=== PATIENT | male | born 1960 | race Caucasian/White ===

== ENCOUNTER 2017-05-29 06:33 | Day surgery (SDC) | payer OTHER ==
[2017-05-29] MEDS ORDERED: fentaNYL 100 MCG/2 ML SDV ONE (07:00)
[2017-05-29] MEDS ORDERED: Propofol 200 MG/20 ML SDV ONE ×2 (07:00→08:07)
[2017-05-29] MEDS ORDERED: Midazolam 1 MG/ML 2 ML SDV ONE (07:00)
[2017-05-29] MEDS ORDERED: Lactated Ringers 1,000 ML IV SCH (07:45)
[2017-05-29 10:04] VITALS: BP 134/84
--- NOTE | 2017-05-29 12:55 | OR ---
DATE OF PROCEDURE: 05/29/2017 PREOPERATIVE DIAGNOSIS: Colon cancer screening. POSTOPERATIVE DIAGNOSES: Diverticulosis, multiple colon polyps. PROCEDURES PERFORMED: Colonoscopy to the cecum with snare cautery polypectomy of a transverse colon polyp. Biopsy resection of two right colon polyps adjacent to each other, sent to the laboratory as one specimen. Snare cautery polypectomy and biopsy of polyp at 80 cm from anal verge. Biopsy resection of small rectal polyp. SURGEON: Jonathon Gunter MD. ANESTHESIA: IV anesthesia with monitored anesthesia care. INDICATIONS: This 56-year-old white male is referred for a colonoscopy for colon cancer screening. He has never had a colonoscopic exam. I counseled him for the procedure including risks and alternatives, and he gave his informed consent to proceed. DESCRIPTION OF PROCEDURE: The patient was placed in the left lateral decubitus position. IV anesthesia was administered by the Anesthesia Service. Time-out was held. A rectal exam was performed, which was unremarkable. The flexible video Olympus colonoscope was introduced through his anus, up his rectum, and out his colon all the way to the cecum. En route, we saw a few scattered left-sided diverticula. There was no bleeding or inflammation associated with them. Also en route in the transverse colon, we saw a polyp which was removed with the snare cautery polypectomy technique. This involved placing the snare about its base, elevating it up away from the bowel wall and applying electrocautery as the polyp was amputated. The polyp was aspirated up through the scope and captured in a polyp trap. Once the cecum was reached, the scope was slowly withdrawn, examining the mucosa throughout. In the right colon, we saw two small polyps across from each other. These were removed and sent to the laboratory as one specimen. They were removed using the biopsy forceps. The scope was withdrawn further with no other lesions noted until we reached 80 cm from the anal verge. Here another polyp was seen which was removed using the snare. Initially we biopsied it but it was too large to remove using this technique. The scope was withdrawn further. One last polyp was seen in the rectum which was removed with the biopsy forceps. The scope was retroflexed in the rectum with the distal rectum appearing unremarkable. The scope was straightened and removed. He tolerated the procedure well. Jonathon Gunter MD /[id number] MADISYN
== END 2017-05-29 09:40 | disposition home or self-care (01) ==
LOC: JP.SDS 06:33
PROVIDERS: ATTEND Surgery
DX: Z12.11 Encounter for screening for malignant neoplasm of colon (principal); D12.3 Benign neoplasm of transverse colon; D12.2 Benign neoplasm of ascending colon; D12.6 Benign neoplasm of colon, unspecified; D12.8 Benign neoplasm of rectum; K57.30 Diverticulosis of large intestine without perforation or abscess without bleeding; I10 Essential (primary) hypertension; Z87.891 Personal history of nicotine dependence
CPT/HCPCS: 45380; 45385; J2250; J2704; J3010; J7120; 88305

== ENCOUNTER 2017-12-29 10:52 | Inpatient (IN) | payer OTHER ==
--- NOTE | 2017-12-29 11:37 | EDM.PDOC ---
ED HPI GENERAL MEDICAL PROBLEM - General Chief Complaint: Respiratory Problem Stated Complaint: HEART ATTACK? Time Seen by Provider: 12/29/17 11:31 Source of Information: Reports: Patient, Family, Old Records, RN Notes Reviewed History Limitations: Reports: No Limitations - History of Present Illness INITIAL COMMENTS - FREE TEXT/NARRATIVE: 57-year-old gentleman presents to the emergency department today complaint of lung pain and difficulty breathing. He was initially evaluated in the clinic I did receive a call from his provider concerns about chest pressure and discomfort. However at this time he denies any chest pain chest pressure or discomfort his biggest issue is difficulty breathing he's noticed he's gotten more short of breath over the last week complains of lung pain generally when he takes a deep breath. Denies any nausea vomiting diaphoresis no problems with bowel movements total time about 3 weeks EKG performed in the clinic with comparison to old EKG shows a bradycardia no ST elevations or depressions similar in nature to prior, chest x-ray was also performed will try and obtain report, report show no active process - Related Data Allergies Allergy/AdvReac Type Severity Reaction Status Date / Time No Known Allergies Allergy Verified 12/29/17 11:11 Home Meds: Home Meds Atenolol 100 mg PO DAILY 05/27/17 [History] Ibuprofen [Motrin] 800 mg PO Q8H PRN 05/27/17 [History] Losartan [Cozaar] 100 mg PO DAILY 05/27/17 [History] Sildenafil Citrate [Sildenafil] 100 mg PO ASDIRECTED 05/27/17 [History] Triamcinolone Acetonide [Kenalog 0.1% Crm] 1 applic TOP ASDIRECTED PRN 05/27/17 [History] Chlorthalidone 25 mg PO DAILY 12/29/17 [History] Past Medical History HEENT History: Reports: Impaired Vision Cardiovascular History: Reports: High Cholesterol, Hypertension Genitourinary History: Reports: Other (See Below) Other Genitourinary History: ED Musculoskeletal History: Reports: Fracture, Gout, Osteoarthritis Neurological History: Reports: Concussion Endocrine/Metabolic History: Reports: Obesity/BMI 30+ Hematologic History: Reports: Blood Transfusion(s) Dermatologic History: Reports: Other (See Below) Other Dermatologic History: rash on back - Infectious Disease History Infectious Disease History: Reports: Chicken Pox, Measles - Past Surgical History HEENT Surgical History: Reports: Oral Surgery, Tonsillectomy Cardiovascular Surgical History: Reports: None Neurological Surgical History: Reports: None Musculoskeletal Surgical History: Reports: Other (See Below) Other Musculoskeletal Surgeries/Procedures:: Right elbow reconstruction Social & Family History - Tobacco Use Smoking Status *Q: Former Smoker Years of Tobacco use: 14 Packs/Tins Daily: 1 Used Tobacco, but Quit: Yes Month/Year Tobacco Last Used: 6 years ago Second Hand Smoke Exposure: No - Caffeine Use Caffeine Use: Reports: Soda - Alcohol Use Days Per Week of Alcohol Use: 7 Number of Drinks Per Day: 6 Total Drinks Per Week: 42 Date of Last Drink: 12/28/17 - Recreational Drug Use Recreational Drug Use: Yes Drug Use in Last 12 Months: Yes Recreational Drug Type: Reports: Marijuana/Hashish Recreational Drug Use Frequency: Not Used In Over 2 Months ED ROS GENERAL - Review of Systems Review Of Systems: See Below Constitutional: Reports: Fatigue. Denies: Fever, Chills HEENT: Reports: No Symptoms Respiratory: Reports: Shortness of Breath, Cough. Denies: Sputum (Dry) Cardiovascular: Reports: Dyspnea on Exertion GI/Abdominal: Reports: No Symptoms : Reports: No Symptoms Musculoskeletal: Reports: No Symptoms Skin: Reports: No Symptoms Neurological: Reports: No Symptoms ED EXAM, GENERAL - Physical Exam Exam: See Below Free Text/Narrative:: General: Male, not in any distress, alert and oriented x3 HEENT: head is atraumatic normocephalic, eyes pupils equal round reactive to light, sclera clear no conjunctivitis appreciated. Ears tympanic membranes clear and robles landmarks and light reflex are present bilaterally canals are clear. Nose no septal deviation, nares are clear, no blood present. Mouth mucosa is moist and pink no erythema or exudate noted in soft palate, tongue is midline uvula is midline, dentition is intact. Neck: Supple no thyromegaly no tracheal deviation. Nodes: Cervical nodes subclavicular nodes nontender no palpable lymphadenopathy noted. Lungs: Coarse rhonchi left greater than right otherwise good aeration CV: Regular rate and rhythm S1 and S2 appreciated no murmurs rubs or gallops noted. Abdomen: Soft, nontender, no palpable masses or organomegaly appreciated, no distention no guarding bowel sounds are present, . Neuro: Cranial nerves II through XII grossly intact Skin: Warm and dry, intact Extremities: No lower extremity edema appreciated, Course - Vital Signs Last Recorded V/S: Last Vital Signs Temp 96.6 F 12/29/17 11:10 Pulse 65 12/29/17 11:10 Resp 18 12/29/17 11:10 BP 137/75 12/29/17 11:10 Pulse Ox 94 L 12/29/17 11:10 - Orders/Labs/Meds Orders: Active Orders 24 hr Category Date Time Status Cardiac Monitoring [RC] .As Directed Care 12/29/17 11:32 Active Peripheral IV Care [RC] . DIRECTED Care 12/29/17 12:47 Ordered Sodium Chloride 0.9% [Normal Saline] 1,000 ml Med 12/29/17 13:00 Ordered IV ASDIRECTED Sodium Chloride 0.9% [Saline Flush] Med 12/29/17 12:47 Ordered 10 ml FLUSH ASDIRECTED PRN Peripheral IV Insertion Adult [OM.PC] Urgent Oth 12/29/17 12:47 Ordered Medication Orders Sodium Chloride (Normal Saline) 1,000 mls @ 999 mls/hr IV ASDIRECTED FRANC Sodium Chloride (Saline Flush) 10 ml FLUSH ASDIRECTED PRN PRN Reason: Keep Vein Open Labs: Laboratory Tests 12/29/17 12/29/17 12/29/17 Range/Units 11:35 11:39 11:39 WBC 7.5 (4.5-11.0) K/uL RBC 3.68 L (4.30-5.90) M/uL Hgb 11.5 L (12.0-15.0) g/dL Hct 30.8 L (40.0-54.0) % MCV 84 (80-98) fL MCH 31 (27-31) pg MCHC 37 H (32-36) % Plt Count 242 (150-400) K/uL Neut % (Auto) 69 H (36-66) % Lymph % (Auto) 9 L (24-44) % [place] % (Auto) 20 H (2-6) % Eos % (Auto) 2 (2-4) % Baso % (Auto) 0 (0-1) % D-Dimer, Quantitative < 100 (0.0-400.0) ng/mL Sodium (140-148) mmol/L Potassium (3.6-5.2) mmol/L Chloride (100-108) mmol/L Carbon Dioxide (21-32) mmol/L Anion Gap (5.0-14.0) mmol/L BUN (7-18) mg/dL Creatinine (0.8-1.3) mg/dL Est Cr Clr Drug Dosing mL/min Estimated GFR (MDRD) (>60) Glucose (74-106) mg/dL Calcium (8.5-10.1) mg/dL Total Bilirubin (0.2-1.0) mg/dL AST (15-37) U/L ALT (12-78) U/L Alkaline Phosphatase (46-116) U/L Troponin I (0.000-0.056) ng/mL NT-Pro-B Natriuret Pep (5-125) pg/mL Total Protein (6.4-8.2) g/dL Albumin (3.4-5.0) g/dL Globulin (2.3-3.5) g/dL Albumin/Globulin Ratio (1.2-2.2) TSH, Ultra Sensitive 0.915 (0.358-3.740) uIU/mL 12/29/17 Range/Units 11:39 WBC (4.5-11.0) K/uL RBC (4.30-5.90) M/uL Hgb (12.0-15.0) g/dL Hct (40.0-54.0) % MCV (80-98) fL MCH (27-31) pg MCHC (32-36) % Plt Count (150-400) K/uL Neut % (Auto) (36-66) % Lymph % (Auto) (24-44) % [place] % (Auto) (2-6) % Eos % (Auto) (2-4) % Baso % (Auto) (0-1) % D-Dimer, Quantitative (0.0-400.0) ng/mL Sodium 115 L* (140-148) mmol/L Potassium 2.7 L* (3.6-5.2) mmol/L Chloride 74 L (100-108) mmol/L Carbon Dioxide 32 (21-32) mmol/L Anion Gap 11.7 (5.0-14.0) mmol/L BUN 16 (7-18) mg/dL Creatinine 1.0 (0.8-1.3) mg/dL Est Cr Clr Drug Dosing 77.90 mL/min Estimated GFR (MDRD) > 60 (>60) Glucose 126 H (74-106) mg/dL Calcium 9.4 (8.5-10.1) mg/dL Total Bilirubin 0.8 (0.2-1.0) mg/dL AST 86 H (15-37) U/L ALT 113 H (12-78) U/L Alkaline Phosphatase 70 (46-116) U/L Troponin I < 0.017 (0.000-0.056) ng/mL NT-Pro-B Natriuret Pep 143 H (5-125) pg/mL Total Protein 6.8 (6.4-8.2) g/dL Albumin 3.8 (3.4-5.0) g/dL Globulin 3.0 (2.3-3.5) g/dL Albumin/Globulin Ratio 1.3 (1.2-2.2) TSH, Ultra Sensitive (0.358-3.740) uIU/mL Meds: Medications Generic Name Dose Route Start Last Admin Trade Name Freq PRN Reason Stop Dose Admin Sodium Chloride 1,000 mls @ 999 mls/hr 12/29/17 13:00 Normal Saline IV ASDIRECTED FRANC Sodium Chloride 10 ml 12/29/17 12:47 Saline Flush FLUSH ASDIRECTED PRN Keep Vein Open Departure - Departure Time of Disposition: 12:51 Disposition: Admitted As Inpatient 65 Condition: Good Clinical Impression: Hyponatremia - Discharge Information Referrals: Franko Frank MD [Primary Care Provider] - Forms: ED Department Discharge - My Orders Last 24 Hours: My Active Orders 12/29/17 11:32 Cardiac Monitoring [RC] .As Directed 12/29/17 12:47 Peripheral IV Care [RC] . DIRECTED Sodium Chloride 0.9% [Saline Flush] 10 ml FLUSH ASDIRECTED PRN Peripheral IV Insertion Adult [OM.PC] Urgent 12/29/17 13:00 Sodium Chloride 0.9% [Normal Saline] 1,000 ml IV ASDIRECTED - Assessment/Plan Last 24 Hours: My Active Orders 12/29/17 11:32 Cardiac Monitoring [RC] .As Directed 12/29/17 12:47 Peripheral IV Care [RC] . DIRECTED Sodium Chloride 0.9% [Saline Flush] 10 ml FLUSH ASDIRECTED PRN Peripheral IV Insertion Adult [OM.PC] Urgent 12/29/17 13:00 Sodium Chloride 0.9% [Normal Saline] 1,000 ml IV ASDIRECTED Plan: Assessment Acuity = acute Site and laterality = hyponatremia complicated patient with known history of hypertension Etiology = probable chlorthalidone Manifestations = fatigue, hypokalemia Location of injury = Home Lab values = hemoglobin low 11.5 consistent with normochromic anemia, d-dimer is negative, sodium low at 1:15 consistent with hyponatremia severe, potassium low at 2.7 consistent with hypokalemia, AST is 86 ALT is 113 consistent elevated liver enzymes troponin is negative BNP mildly elevated at 143 undetermined significance Plan Called and discussed case with hospitalist manufacturing controls engineer he agreed to come and evaluate the patient emergency department he has received a 1 L bolus of normal saline while in the ED as well as a 40 mEq rider of potassium This note was dictated using [email or web address] voice recognition software please call with any questions on syntax or jamie.
[2017-12-29] MEDS ORDERED: Sodium Chloride 0.9% 10 ML Syringe FLUSH PRN (12:47)
[2017-12-29] MEDS ORDERED: Potassium Chloride 40 MEQ in Premix Bag 1 BAG IV ONE (12:51)
[2017-12-29] MEDS ORDERED: Sodium Chloride 0.9% 1,000 ML IV SCH (13:00)
[2017-12-29] MEDS: Potassium Chloride 20 MEQ, Lidocaine 1% 2 ML in Sodium Chloride 0.9% 100 ML IV SCH ×2 (13:15→15:43)
--- NOTE | 2017-12-29 13:30 | PCM.HP ---
H&P History of Present Illness - General Date of Service: 12/29/17 Admit Problem/Dx: Admission Diagnosis/Problem Admission Diagnosis/Problem Hyponatremia Source of Information: Patient, Family, Provider History Limitations: Reports: No Limitations - History of Present Illness Initial Comments - Free Text/Narative: Shiva presents to the emergency room today with 3 weeks of progressive weakness. Initial symptoms were cough and some shortness of breath. When symptoms persisted for a couple weeks he decided to use some leftover penicillin. This did seem to help his cough some and then after several days he developed some discomfort in his anterior chest with breathing. He describes this as a mild to moderate sharp pain in the anterior chest. It is worse with deep breathing and better with rest. No significant change with exertion. He has used ibuprofen a couple times without much benefit. He had a fever 3 weeks ago and intermittently over the next 2 weeks but none for the last week. He has become progressively short of breath and weak, especially with activity. Getting through the workday is becoming more and more difficult. No orthopnea or lower extremity edema. He hasn't noticed a change in his urinary habits. His appetite has been steadily decreasing. He has been quite thirsty the past few days. He does note that he was started on new antihypertensive medications approximately 2 months ago. Workup in the emergency room was suggestive of significant hyponatremia and hypokalemia. Adverse medication reaction is suspected. He will be admitted for hydration and electrolyte replacement. - Related Data Allergies/Adverse Reactions: Allergies Allergy/AdvReac Type Severity Reaction Status Date / Time No Known Allergies Allergy Verified 12/29/17 11:11 Home Medications: Home Meds Atenolol 100 mg PO DAILY 05/27/17 [History] Ibuprofen [Motrin] 800 mg PO Q8H PRN 05/27/17 [History] Losartan [Cozaar] 100 mg PO DAILY 05/27/17 [History] Sildenafil Citrate [Sildenafil] 100 mg PO ASDIRECTED 05/27/17 [History] Triamcinolone Acetonide [Kenalog 0.1% Crm] 1 applic TOP ASDIRECTED PRN 05/27/17 [History] Chlorthalidone 25 mg PO DAILY 12/29/17 [History] Past Medical History HEENT History: Reports: Impaired Vision Cardiovascular History: Reports: High Cholesterol, Hypertension Genitourinary History: Reports: Other (See Below) Other Genitourinary History: ED Musculoskeletal History: Reports: Fracture, Gout, Osteoarthritis Neurological History: Reports: Concussion Psychiatric History: Reports: ADD Endocrine/Metabolic History: Reports: Obesity/BMI 30+ Hematologic History: Reports: Blood Transfusion(s) Dermatologic History: Reports: Other (See Below) Other Dermatologic History: rash on back - Infectious Disease History Infectious Disease History: Reports: Chicken Pox, Measles - Past Surgical History HEENT Surgical History: Reports: Oral Surgery, Tonsillectomy Cardiovascular Surgical History: Reports: None Neurological Surgical History: Reports: None Musculoskeletal Surgical History: Reports: Other (See Below) Other Musculoskeletal Surgeries/Procedures:: Right elbow reconstruction Social & Family History - Family History Neurological: Reports: CVA (dad in early 70s) - Tobacco Use Smoking Status *Q: Former Smoker Years of Tobacco use: 14 Packs/Tins Daily: 1 Used Tobacco, but Quit: Yes Month/Year Tobacco Last Used: 6 years ago Second Hand Smoke Exposure: No - Caffeine Use Caffeine Use: Reports: Soda - Alcohol Use Days Per Week of Alcohol Use: 7 Number of Drinks Per Day: 6 Total Drinks Per Week: 42 Date of Last Drink: 12/28/17 - Recreational Drug Use Recreational Drug Use: Yes Drug Use in Last 12 Months: Yes Recreational Drug Type: Reports: Marijuana/Hashish Recreational Drug Use Frequency: Not Used In Over 2 Months H&P Review of Systems - Review of Systems: Review Of Systems: See Below Free Text/Narrative: A complete 12 point review of systems was obtained. Pertinent positives and negatives are noted in the history of present illness. All other systems were reviewed and were negative except as noted. Exam - Exam Exam: See Below - Vital Signs Vital Signs: Last Vital Signs Temp 35.9 C 12/29/17 11:10 Pulse 65 12/29/17 11:10 Resp 18 12/29/17 11:10 BP 137/75 12/29/17 11:10 Pulse Ox 94 L 12/29/17 11:10 Weight: 104.326 kg - Exam Quality Assessment: No: Supplemental Oxygen General: Alert, Oriented, Cooperative. No: Mild Distress HEENT: Conjunctiva Clear. No: Mucosa Moist & [place] (Dry), Scleral Icterus Neck: Supple, Trachea Midline. No: Lymphadenopathy Lungs: Clear to Auscultation, Normal Respiratory Effort Cardiovascular: Regular Rate, Regular Rhythm. No: Systolic Murmur GI/Abdominal Exam: Normal Bowel Sounds, Soft, Non-Tender, No Distention Back Exam: Normal Inspection, Full Range of Motion Extremities: No Pedal Edema. No: Increased Warmth Peripheral Pulses: 2+: Dorsalis Pedis (L), Dorsalis Pedis (R) Skin: Warm, Dry, Intact. No: Rash Neuro Extensive - Mental Status: Alert, Oriented x3, Normal Mood/Affect, Nl Response to Commands Neuro Extensive - Motor, Sensory, Reflexes: CN II-XII Intact. No: Dysarthria, Abnormal Motor, Tremor Psychiatric: Alert, Normal Affect - Patient Data Lab Results Last 24 hrs: Laboratory Results - last 24 hr 12/29/17 12/29/17 12/29/17 Range/Units 11:35 11:39 11:39 WBC 7.5 (4.5-11.0) K/uL RBC 3.68 L (4.30-5.90) M/uL Hgb 11.5 L (12.0-15.0) g/dL Hct 30.8 L (40.0-54.0) % MCV 84 (80-98) fL MCH 31 (27-31) pg MCHC 37 H (32-36) % Plt Count 242 (150-400) K/uL Neut % (Auto) 69 H (36-66) % Lymph % (Auto) 9 L (24-44) % [place] % (Auto) 20 H (2-6) % Eos % (Auto) 2 (2-4) % Baso % (Auto) 0 (0-1) % D-Dimer, Quantitative < 100 (0.0-400.0) ng/mL Sodium (140-148) mmol/L Potassium (3.6-5.2) mmol/L Chloride (100-108) mmol/L Carbon Dioxide (21-32) mmol/L Anion Gap (5.0-14.0) mmol/L BUN (7-18) mg/dL Creatinine (0.8-1.3) mg/dL Est Cr Clr Drug Dosing mL/min Estimated GFR (MDRD) (>60) Glucose (74-106) mg/dL Calcium (8.5-10.1) mg/dL Total Bilirubin (0.2-1.0) mg/dL AST (15-37) U/L ALT (12-78) U/L Alkaline Phosphatase (46-116) U/L Troponin I (0.000-0.056) ng/mL NT-Pro-B Natriuret Pep (5-125) pg/mL Total Protein (6.4-8.2) g/dL Albumin (3.4-5.0) g/dL Globulin (2.3-3.5) g/dL Albumin/Globulin Ratio (1.2-2.2) TSH, Ultra Sensitive 0.915 (0.358-3.740) uIU/mL 12/29/17 Range/Units 11:39 WBC (4.5-11.0) K/uL RBC (4.30-5.90) M/uL Hgb (12.0-15.0) g/dL Hct (40.0-54.0) % MCV (80-98) fL MCH (27-31) pg MCHC (32-36) % Plt Count (150-400) K/uL Neut % (Auto) (36-66) % Lymph % (Auto) (24-44) % [place] % (Auto) (2-6) % Eos % (Auto) (2-4) % Baso % (Auto) (0-1) % D-Dimer, Quantitative (0.0-400.0) ng/mL Sodium 115 L* (140-148) mmol/L Potassium 2.7 L* (3.6-5.2) mmol/L Chloride 74 L (100-108) mmol/L Carbon Dioxide 32 (21-32) mmol/L Anion Gap 11.7 (5.0-14.0) mmol/L BUN 16 (7-18) mg/dL Creatinine 1.0 (0.8-1.3) mg/dL Est Cr Clr Drug Dosing 77.90 mL/min Estimated GFR (MDRD) > 60 (>60) Glucose 126 H (74-106) mg/dL Calcium 9.4 (8.5-10.1) mg/dL Total Bilirubin 0.8 (0.2-1.0) mg/dL AST 86 H (15-37) U/L ALT 113 H (12-78) U/L Alkaline Phosphatase 70 (46-116) U/L Troponin I < 0.017 (0.000-0.056) ng/mL NT-Pro-B Natriuret Pep 143 H (5-125) pg/mL Total Protein 6.8 (6.4-8.2) g/dL Albumin 3.8 (3.4-5.0) g/dL Globulin 3.0 (2.3-3.5) g/dL Albumin/Globulin Ratio 1.3 (1.2-2.2) TSH, Ultra Sensitive (0.358-3.740) uIU/mL Result Diagrams: 12/29/17 11:39 12/29/17 11:39 *Q Meaningful Use (ADM) - VTE Risk Assess *Q Each Risk Factor Represents 1 Point: Age 41 - 59 years Total Score 1 Point Risk Factors: 1 Each Risk Factor Represents 2 Points: None Total Score 2 Point Risk Factors: 0 Each Risk Factor Represents 3 Points: None Total Score 3 Point Risk Factors: 0 Each Risk Factor Represents 5 Points: None Total Score 5 Point Risk Factors: 0 Venous Thromboembolism Risk Factor Score *Q: 1 - Problem List (1) Hyponatremia SNOMED Code(s): 50374612 ICD Code: E87.1 - HYPO-OSMOLALITY AND HYPONATREMIA Status: Acute Current Visit: Yes (2) Hypokalemia due to loss of potassium SNOMED Code(s): 46912241 ICD Code: E87.6 - HYPOKALEMIA Status: Acute Current Visit: Yes (3) Essential hypertension SNOMED Code(s): 07315440 ICD Code: I10 - ESSENTIAL (PRIMARY) HYPERTENSION Status: Acute Current Visit: Yes Problem List Initiated/Reviewed/Updated: Yes Orders Last 24hrs: Active Orders 24 hr Category Date Time Status Patient Status Manage Transfer [TRANSFER] Routine ADT 12/29/17 13:19 Ordered Cardiac Monitoring [RC] .As Directed Care 12/29/17 11:32 Active Peripheral IV Care [RC] . DIRECTED Care 12/29/17 12:47 Active Potassium Chloride 20 meq Med 12/29/17 12:59 Active Lidocaine 1% [Xylocaine 1%] 2 ml Sodium Chloride 0.9% [Normal Saline] 100 ml IV Q2H Sodium Chloride 0.9% [Normal Saline] 1,000 ml Med 12/29/17 13:00 Active IV ASDIRECTED Sodium Chloride 0.9% [Saline Flush] Med 12/29/17 12:47 Active 10 ml FLUSH ASDIRECTED PRN Peripheral IV Insertion Adult [OM.PC] Urgent Oth 12/29/17 12:47 Ordered Resuscitation Status Routine Resus Stat 12/29/17 13:20 Ordered Medication Orders Sodium Chloride (Normal Saline) 1,000 mls @ 999 mls/hr IV ASDIRECTED FRANC Last Admin: 12/29/17 13:09 Dose: 999 mls/hr Potassium Chloride 20 meq/Lidocaine HCl 2 ml/ Sodium Chloride 112 mls @ 56 mls/ hr IV Q2H FRANC Stop: 12/29/17 16:58 Last Admin: 12/29/17 13:15 Dose: 56 mls/hr Sodium Chloride (Saline Flush) 10 ml FLUSH ASDIRECTED PRN PRN Reason: Keep Vein Open Assessment/Plan Comment:: ASSESSMENT AND PLAN - Profound hyponatremia - I suspect this is due to intravascular volume depletion in the setting of chlorthalidone use. This is a relatively new medication for him. He does not use much ibuprofen so I doubt this is much of a contributor. There may have been contribution from his recent penicillin use though I suspect this is mostly a diuretic induced problem. Blood pressure currently stable and vital signs are stable. -1 L normal saline bolus followed by continuous infusion overnight -Repeat labs this evening and in the morning Hypokalemia - Significant hypokalemia noted, suspect diuretic-induced losses. He will be receiving 40 mEq in the emergency room. -IV fluids with potassium -Repeat level this evening and in the morning Atypical chest pain - sounds like more of a pleurisy type issue. Troponin was negative. Could be related to gastric irritation in the setting of profound hyponatremia. I would expect that as his hydration improves this symptom should resolve. -Management as above Essential hypertension - Blood pressure currently stable. Medication regimen was recently altered. Diuretic effect suspected as mentioned above. -Continue atenolol and losartan -Consider calcium channel sami if additional blood pressure control need Maintenance issues - - DVT prophylaxis - mechanical - GI prophylaxis - not indicated - Nutrition - regular diet as tolerated - Frankel catheter - not indicated CODE STATUS - full code Admission justification - This patient will be admitted for inpatient services and is medically appropriate meeting medical necessity for inpatient admission as outlined in my documentation. I reasonably expect the patient will require inpatient services that span a period time over 2 midnights. I reasonably expect this patient to be discharged or transferred within 96 hours [facility] Disposition - anticipate discharge home after the hospital stay Primary care physician - Dr Monika Torres M.D.
[2017-12-29] MEDS ORDERED: Ondansetron 4 MG Tab.DIS PO PRN (14:44)
[2017-12-29] MEDS ORDERED: Acetaminophen 325 MG Tab PO PRN (14:44)
[2017-12-29] MEDS ORDERED: Polyethylene Glycol 3350 Powder 17 GM Packet PO PRN (14:44)
[2017-12-29] MEDS ORDERED: oxyCODONE 5 MG Tab PO PRN (14:44)
[2017-12-29] MEDS: NS + KCl 20mEq/L 1,000 ML IV SCH ×2 (15:11→22:55)
[2017-12-29] MEDS ORDERED: Potassium Chloride 20 MEQ Tab.ER PO ONE (20:15)
--- NOTE | 2017-12-29 20:29 | PCM.SN ---
- Free Text/Narrative Note: time: 20:15 call from [address] [place] [address] Nursing: Potassium 3.2, Sodium 121 o: IV fluids Normal Saline with KCL 20 meq at 125ml/hr. a: hypokalemia p:Potassium 20 meq po now. recheck Potassium in am. continue present plan of care.
[2017-12-30] MEDS: NS + KCl 20mEq/L 1,000 ML IV SCH (07:29)
[2017-12-30 07:34] VITALS: BP 102/74
[2017-12-30] MEDS ORDERED: Atenolol 50 MG Tab PO SCH (09:00)
[2017-12-30] MEDS ORDERED: Non-Formulary Medication 1 Each (Atenolol [Atenolol] 100 MG) PO SCH (09:00)
[2017-12-30] MEDS ORDERED: Losartan 50 MG Tab PO SCH (09:00)
[2017-12-30] MEDS ORDERED: Potassium Chloride 20 MEQ Tab.ER PO ONE (10:15)
--- NOTE | 2017-12-30 10:16 | PCM.DCSUM1 ---
Discharge Summary - Hospital Course Brief History: 57-year-old male with essential hypertension who presented with weakness and was admitted for management of severe hyponatremia and hypokalemia. - Discharge Data Discharge Date: 12/30/17 Discharge Disposition: Home, Self-Care 01 Condition: Good - Discharge Diagnosis/Problem(s) (1) Hyponatremia SNOMED Code(s): 68429999 ICD Code: E87.1 - HYPO-OSMOLALITY AND HYPONATREMIA Status: Acute (2) Hypokalemia due to loss of potassium SNOMED Code(s): 42149692 ICD Code: E87.6 - HYPOKALEMIA Status: Acute (3) Essential hypertension SNOMED Code(s): 78240744 ICD Code: I10 - ESSENTIAL (PRIMARY) HYPERTENSION Status: Chronic - Patient Summary/Data Hospital Course: Shiva presented to the emergency room with several weeks of progressive weakness as well as some anterior chest discomfort with deep breathing. Workup in the emergency room revealed profound hyponatremia as well as impressive hypokalemia. There is no evidence for respiratory infection or acute coronary syndrome to explain his anterior chest discomfort. He was started on sodium and potassium replacement and admitted to the hospital. His chlorthalidone was thought to be the culprit for his low sodium and potassium resulting from intravascular volume depletion. Repeat levels of his electrolytes the evening after admission revealed improvement in both the sodium and potassium but the levels remained low. He received additional sodium chloride overnight as well as additional potassium supplementation. By the morning after admission his sodium level is up to 126 and his potassium is 3.4. He feels much better and strength has improved. His anterior chest discomfort feels better today and he has been coughing a little bit more with a loose cough. He did not have any fevers. His white blood cell count is normal. I suspect the cough is related to some leftover inflammation from a viral infection a couple of weeks ago. I don' t believe he needs antibiotic therapy at this time. His vital signs have remained stable throughout the course of the hospital stay. He has not received any chlorthalidone and I recommended that he discontinue this medication. He will continue his atenolol and losartan for blood pressure control. He will be following up next week to repeat laboratory testing and then in 2 weeks for blood pressure check. He will resume a regular diet. He may return to work without any restrictions. Initially he was admitted to inpatient status with the idea that management of his severe electrolyte abnormalities would require a hospital stay spanning 2 midnights. He has improved much more quickly than expected and is ready for discharge after only one day of hospitalization. - Patient Instructions Diet: Regular Diet as Tolerated Activity: As Tolerated Driving: May Drive Today Showering/Bathing: May Shower Notify Provider of: Fever, Increased Pain, Nausea and/or Vomiting Other/Special Instructions: 1. You were in the hospital for management of hyponatremia (low sodium) and hypokalemia (low potassium). I suspect that both of these levels were low because of your blood pressure medication chlorthalidone. Your levels have improved with supplementation via IV fluids. I would recommend that you discontinue the chlorthalidone but please continue your atenolol and losartan. I would recommend that you keep track of your blood pressure at home and alert your primary care provider if your pressures are consistently below 100 systolic or greater than 160 systolic. Please follow-up next Thursday morning for blood work at the clinic in [place] and in [address] Frank for a blood pressure check. 2. You may return to work immediately without any restrictions. 3. Please seek medical attention if you develop fever greater than 101, if you develop profound weakness, if you have a seizure or if the cough does not continue to better or gets worse. - Discharge Plan Home Medications: Home Meds Atenolol 100 mg PO DAILY 05/27/17 [History] Ibuprofen [Motrin] 800 mg PO Q8H PRN 05/27/17 [History] Losartan [Cozaar] 100 mg PO DAILY 05/27/17 [History] Sildenafil Citrate [Sildenafil] 100 mg PO ASDIRECTED 05/27/17 [History] Triamcinolone Acetonide [Kenalog 0.1% Crm] 1 applic TOP ASDIRECTED PRN 05/27/17 [History] Patient Handouts: Hyponatremia, [id number], Hypokalemia Referrals: Franko Frank MD [Primary Care Provider] - (f/u next Thursday for blood work in [place] and in 2 weeks for a blood pressure check ) - Discharge Summary/Plan Comment DC Time >30 min.: No (25) - Patient Data Vitals - Most Recent: Last Vital Signs Temp 36.8 C 12/30/17 07:32 Pulse 77 12/30/17 08:26 Resp 18 12/30/17 07:32 BP 102/74 12/30/17 08:26 Pulse Ox 100 12/30/17 07:32 Weight - Most Recent: 104.326 kg I&O - Last 24 hours: Intake & Output 12/29/17 12/30/17 12/30/17 22:59 06:59 14:59 Intake Total 1134 2100 1158 Balance 1134 2100 1158 Lab Results - Last 24 hrs: Laboratory Results - last 24 hr 12/29/17 12/29/17 12/29/17 Range/Units 11:35 11:39 11:39 WBC 7.5 (4.5-11.0) K/uL RBC 3.68 L (4.30-5.90) M/uL Hgb 11.5 L (12.0-15.0) g/dL Hct 30.8 L (40.0-54.0) % MCV 84 (80-98) fL MCH 31 (27-31) pg MCHC 37 H (32-36) % Plt Count 242 (150-400) K/uL Neut % (Auto) 69 H (36-66) % Lymph % (Auto) 9 L (24-44) % [place] % (Auto) 20 H (2-6) % Eos % (Auto) 2 (2-4) % Baso % (Auto) 0 (0-1) % D-Dimer, Quantitative < 100 (0.0-400.0) ng/mL Sodium (140-148) mmol/L Potassium (3.6-5.2) mmol/L Chloride (100-108) mmol/L Carbon Dioxide (21-32) mmol/L Anion Gap (5.0-14.0) mmol/L BUN (7-18) mg/dL Creatinine (0.8-1.3) mg/dL Est Cr Clr Drug Dosing mL/min Estimated GFR (MDRD) (>60) Glucose (74-106) mg/dL Calcium (8.5-10.1) mg/dL Magnesium (1.8-2.4) mg/dL Total Bilirubin (0.2-1.0) mg/dL AST (15-37) U/L ALT (12-78) U/L Alkaline Phosphatase (46-116) U/L Troponin I (0.000-0.056) ng/mL NT-Pro-B Natriuret Pep (5-125) pg/mL Total Protein (6.4-8.2) g/dL Albumin (3.4-5.0) g/dL Globulin (2.3-3.5) g/dL Albumin/Globulin Ratio (1.2-2.2) TSH, Ultra Sensitive 0.915 (0.358-3.740) uIU/mL 12/29/17 12/29/17 12/29/17 Range/Units 11:39 14:44 19:53 WBC (4.5-11.0) K/uL RBC (4.30-5.90) M/uL Hgb (12.0-15.0) g/dL Hct (40.0-54.0) % MCV (80-98) fL MCH (27-31) pg MCHC (32-36) % Plt Count (150-400) K/uL Neut % (Auto) (36-66) % Lymph % (Auto) (24-44) % [place] % (Auto) (2-6) % Eos % (Auto) (2-4) % Baso % (Auto) (0-1) % D-Dimer, Quantitative (0.0-400.0) ng/mL Sodium 115 L* 121 L (140-148) mmol/L Potassium 2.7 L* 3.2 L (3.6-5.2) mmol/L Chloride 74 L 82 L (100-108) mmol/L Carbon Dioxide 32 32 (21-32) mmol/L Anion Gap 11.7 10.2 (5.0-14.0) mmol/L BUN 16 15 (7-18) mg/dL Creatinine 1.0 1.0 (0.8-1.3) mg/dL Est Cr Clr Drug Dosing 77.90 77.90 mL/min Estimated GFR (MDRD) > 60 > 60 (>60) Glucose 126 H 93 (74-106) mg/dL Calcium 9.4 8.9 (8.5-10.1) mg/dL Magnesium 1.7 L (1.8-2.4) mg/dL Total Bilirubin 0.8 (0.2-1.0) mg/dL AST 86 H (15-37) U/L ALT 113 H (12-78) U/L Alkaline Phosphatase 70 (46-116) U/L Troponin I < 0.017 (0.000-0.056) ng/mL NT-Pro-B Natriuret Pep 143 H (5-125) pg/mL Total Protein 6.8 (6.4-8.2) g/dL Albumin 3.8 (3.4-5.0) g/dL Globulin 3.0 (2.3-3.5) g/dL Albumin/Globulin Ratio 1.3 (1.2-2.2) TSH, Ultra Sensitive (0.358-3.740) uIU/mL 12/30/17 12/30/17 Range/Units 05:49 05:49 WBC 6.8 (4.5-11.0) K/uL RBC 3.52 L (4.30-5.90) M/uL Hgb 11.0 L (12.0-15.0) g/dL Hct 30.4 L (40.0-54.0) % MCV 86 (80-98) fL MCH 31 (27-31) pg MCHC 36 (32-36) % Plt Count 244 (150-400) K/uL Neut % (Auto) (36-66) % Lymph % (Auto) (24-44) % [place] % (Auto) (2-6) % Eos % (Auto) (2-4) % Baso % (Auto) (0-1) % D-Dimer, Quantitative (0.0-400.0) ng/mL Sodium 126 L (140-148) mmol/L Potassium 3.4 L (3.6-5.2) mmol/L Chloride 89 L (100-108) mmol/L Carbon Dioxide 28 (21-32) mmol/L Anion Gap 12.4 (5.0-14.0) mmol/L BUN 12 (7-18) mg/dL Creatinine 0.8 (0.8-1.3) mg/dL Est Cr Clr Drug Dosing 97.38 mL/min Estimated GFR (MDRD) > 60 (>60) Glucose 107 H (74-106) mg/dL Calcium 8.7 (8.5-10.1) mg/dL Magnesium (1.8-2.4) mg/dL Total Bilirubin (0.2-1.0) mg/dL AST (15-37) U/L ALT (12-78) U/L Alkaline Phosphatase (46-116) U/L Troponin I (0.000-0.056) ng/mL NT-Pro-B Natriuret Pep (5-125) pg/mL Total Protein (6.4-8.2) g/dL Albumin (3.4-5.0) g/dL Globulin (2.3-3.5) g/dL Albumin/Globulin Ratio (1.2-2.2) TSH, Ultra Sensitive (0.358-3.740) uIU/mL Med Orders - Current: Current Medications Acetaminophen (Tylenol) 650 mg PO Q4H PRN PRN Reason: Pain (Mild 1-3)/fever Atenolol (Tenormin) 100 mg PO DAILY [facility] Last Admin: 12/30/17 08:26 Dose: 100 mg Potassium Chloride/Sodium Chloride (Normal Saline With 20 Meq Kcl) 1,000 mls @ 125 mls/hr IV ASDIRECTED [facility] Last Admin: 12/30/17 07:29 Dose: 125 mls/hr Losartan Potassium (Cozaar) 100 mg PO DAILY [facility] Last Admin: 12/30/17 08:25 Dose: 100 mg Ondansetron HCl (Zofran Odt) 4 mg PO Q6H PRN PRN Reason: Nausea able to take PO Oxycodone HCl (Oxycodone) 5 mg PO Q4H PRN PRN Reason: Pain (moderate 4-6) Polyethylene Glycol (Miralax) 17 gm PO DAILY PRN PRN Reason: Constipation Potassium Chloride (Klor-Con M20) 40 meq PO ONETIME ONE Stop: 12/30/17 10:16 Last Admin: 12/30/17 10:09 Dose: 40 meq Sodium Chloride (Saline Flush) 10 ml FLUSH ASDIRECTED PRN PRN Reason: Keep Vein Open Discontinued Medications Sodium Chloride (Normal Saline) 1,000 mls @ 999 mls/hr IV ASDIRECTED [facility] Last Admin: 12/29/17 13:09 Dose: 999 mls/hr Potassium Chloride 20 meq/Lidocaine HCl 2 ml/ Sodium Chloride 112 mls @ 56 mls/ hr IV Q2H [facility] Stop: 12/29/17 16:58 Last Admin: 12/29/17 15:43 Dose: 56 mls/hr Potassium Chloride (Klor-Con M20) 20 meq PO ONETIME ONE Stop: 12/29/17 20:16 Last Admin: 12/29/17 20:23 Dose: 20 meq - Exam Quality Assessment: Denies: Supplemental Oxygen General: Reports: Alert, Oriented, Cooperative, No Acute Distress Neck: Reports: Supple Lungs: Reports: Normal Respiratory Effort Cardiovascular: Reports: Regular Rate, Regular Rhythm Extremities: No Pedal Edema Psy/Mental Status: Reports: Alert, Normal Affect
== END 2017-12-30 10:19 | disposition home or self-care (01) | DRG 641 ==
LOC: JP.ED 10:52 → JP.MS 13:19
PROVIDERS: ADMIT Internal Medicine; ATTEND Internal Medicine
DX: E87.1 Hypo-osmolality and hyponatremia (principal); E87.6 Hypokalemia; I10 Essential (primary) hypertension; T50.2X5A Adverse effect of carbonic-anhydrase inhibitors, benzothiadiazides and other diuretics, initial encounter; Y92.009 Unspecified place in unspecified non-institutional (private) residence as the place of occurrence of the external cause; R07.89 Other chest pain; H54.7 Unspecified visual loss; Z87.891 Personal history of nicotine dependence; N52.9 Male erectile dysfunction, unspecified
CPT/HCPCS: 36415; 80048; 80053; 83735; 83880; 84443; 84484; 85025; 85027; 85379; 99285; A9270-GY; J3480; J7030; J7040

== ENCOUNTER 2018-07-09 06:24 | Day surgery (SDC) | payer OTHER ==
[2018-07-09] MEDS ORDERED: Lactated Ringers 1,000 ML IV SCH (07:00)
[2018-07-09] MEDS ORDERED: fentaNYL 100 MCG/2 ML SDV ONE (07:32)
[2018-07-09] MEDS ORDERED: Propofol 200 MG/20 ML SDV ONE ×2 (07:32→07:48)
[2018-07-09] MEDS ORDERED: Midazolam 1 MG/ML 2 ML SDV ONE (07:32)
[2018-07-09 09:32] VITALS: BP 152/83
--- NOTE | 2018-07-09 11:02 | OR ---
DATE OF PROCEDURE: 07/09/2018 SURGEON: Jonathon Gunter MD PREOP DIAGNOSIS: History of multiple colon polyps. POSTOP DIAGNOSES: Diverticulosis, small transverse colon polyp, history of multiple colon polyps. PROCEDURE PERFORMED: Colonoscopy to the cecum with biopsy resection of small transverse colon polyp. ANESTHESIA: IV anesthesia with monitored anesthesia care. INDICATION: This 57-year-old white male is referred for a colonoscopy because of history of multiple colon polyps. He says his last colonoscopic exam was done a little over a year ago. I counseled him for the procedure including risks and alternatives and he gave his informed consent to proceed. DESCRIPTION OF PROCEDURE: The patient was placed in the left lateral decubitus position. IV anesthesia was administered by the Anesthesia Service. Time-out was held. A rectal exam was performed, which was unremarkable. The flexible video Olympus colonoscope was introduced through his anus, up his rectum out his colon all the way to the cecum. En route, we saw a few scattered left-sided diverticula. There was no bleeding or inflammation associated with them. Also en-route in the transverse colon, we saw a small polyp, which was removed with the biopsy forceps. Once the cecum was reached, the scope was slowly withdrawn examining the mucosa throughout. No additional mucosal abnormalities were noted. The scope was retroflexed in the rectum with the distal rectum appearing unremarkable. The scope was straightened and removed. He tolerated the procedure well. Jonathon Gunter MD /[id number]
== END 2018-07-09 09:10 | disposition home or self-care (01) ==
LOC: JP.SDS 06:24
PROVIDERS: ATTEND Surgery
DX: D12.3 Benign neoplasm of transverse colon (principal); K57.30 Diverticulosis of large intestine without perforation or abscess without bleeding; I10 Essential (primary) hypertension; Z98.890 Other specified postprocedural states; Z86.010 Personal history of colon polyps
CPT/HCPCS: 45380; J2250; J2704; J3010; J7120

== ENCOUNTER 2020-08-23 23:57 | Inpatient (IN) | payer OTHER ==
--- NOTE | 2020-08-24 00:24 | EDM.PDOC ---
ED HPI GENERAL MEDICAL PROBLEM - General Chief Complaint: Cardiovascular Problem Stated Complaint: [facility] Time Seen by Provider: 08/24/20 00:23 Source of Information: Reports: Patient History Limitations: Reports: No Limitations - History of Present Illness INITIAL COMMENTS - FREE TEXT/NARRATIVE: pt arrived with a feeling that his heart was racing. He vomited after getting here and it did look coffee ground. He has not had abdomanal pain. He is feeling very shaking. He does drink 4-5 large drinks daily. He uses [place] but no other street drugs. Onset: Today Duration: Hour(s): Location: Reports: Chest, Generalized Associated Symptoms: Reports: Shortness of Breath, Other (pt feels like his heart is racing. ) denies pain Pain Score (Numeric/FACES): 0 - Related Data Allergies Allergy/AdvReac Type Severity Reaction Status Date / Time No Known Allergies Allergy Verified 08/24/20 00:02 Home Meds: Home Meds Ibuprofen [Motrin] 800 mg PO Q8H PRN 05/27/17 [History] Losartan [Cozaar] 100 mg PO DAILY 05/27/17 [History] Triamcinolone Acetonide [Kenalog 0.1% Crm] 1 applic TOP ASDIRECTED PRN 05/27/17 [History] atenoloL [Atenolol] 100 mg PO DAILY 05/27/17 [History] predniSONE [Prednisone] 20 mg PO DAILY PRN 07/07/18 [History] amLODIPine [Norvasc] 5 mg PO DAILY 08/24/20 [History] Past Medical History HEENT History: Reports: Impaired Vision Cardiovascular History: Reports: High Cholesterol, Hypertension Gastrointestinal History: Reports: Colon Polyp Genitourinary History: Reports: Other (See Below) Other Genitourinary History: ED Musculoskeletal History: Reports: Fracture, Gout, Osteoarthritis Neurological History: Reports: Concussion Psychiatric History: Reports: ADD Endocrine/Metabolic History: Reports: Obesity/BMI 30+ Hematologic History: Reports: Blood Transfusion(s) Dermatologic History: Reports: Other (See Below) Other Dermatologic History: rash on back - Infectious Disease History Infectious Disease History: Reports: Chicken Pox, Measles - Past Surgical History HEENT Surgical History: Reports: Oral Surgery, Tonsillectomy Cardiovascular Surgical History: Reports: None GI Surgical History: Reports: Colonoscopy Male Surgical History: Reports: None Endocrine Surgical History: Reports: None Neurological Surgical History: Reports: None Musculoskeletal Surgical History: Reports: Other (See Below) Other Musculoskeletal Surgeries/Procedures:: Right elbow reconstruction Social & Family History - Family History Family Medical History: No Pertinent Family History Neurological: Reports: CVA - Tobacco Use Tobacco Use Status *Q: Never Tobacco User - Caffeine Use Caffeine Use: Reports: Soda - Recreational Drug Use Recreational Drug Use: Yes Drug Use in Last 12 Months: Yes Recreational Drug Type: Reports: Marijuana/Hashish Recreational Drug Use Frequency: Rarely ED ROS GENERAL - Review of Systems Review Of Systems: See Below Constitutional: Reports: Diaphoresis HEENT: Reports: No Symptoms Respiratory: Reports: Shortness of Breath Cardiovascular: Reports: Palpitations Endocrine: Reports: No Symptoms GI/Abdominal: Reports: Hematemesis, Nausea, Vomiting : Reports: No Symptoms Musculoskeletal: Reports: No Symptoms Skin: Reports: No Symptoms ED EXAM, GENERAL - Physical Exam Exam: See Below Free Text/Narrative:: pt is very shaky and he feels like his heart is pounding fast and hard. He last drank tonight about 8 pm. Exam Limited By: No Limitations General Appearance: Alert, Anxious, Mild Distress, Other (pupils equal and reactive. ) Ears: Normal TMs Nose: Normal Inspection Throat/Mouth: Normal Inspection Head: Atraumatic Neck: Normal Inspection Respiratory/Chest: No Respiratory Distress Cardiovascular: Regular Rate, Rhythm, Tachycardia GI/Abdominal: Soft, Non-Tender (Male) Exam: Deferred Rectal (Males) Exam: Deferred Back Exam: Normal Inspection Extremities: Normal Inspection Neurological: Alert, Oriented, Normal Cognition Psychiatric: Anxious, Other (pt is very shaky. ) Course - Vital Signs Last Recorded V/S: Last Vital Signs Temp 37.1 C 08/24/20 02:46 Pulse 95 08/24/20 06:03 Resp 17 08/24/20 06:03 BP 117/62 08/24/20 06:03 Pulse Ox 98 08/24/20 06:03 - Orders/Labs/Meds Orders: Active Orders 24 hr Category Date Time Status Chest 1V Frontal [CR] Stat Exams 08/24/20 00:52 Taken Sodium Chloride 0.9% [Normal Saline] 1,000 ml Med 08/24/20 00:45 Active IV ASDIRECTED Sodium Chloride 0.9% [Normal Saline] 1,000 ml Med 08/24/20 02:15 Active IV ASDIRECTED Sodium Chloride 0.9% [Normal Saline] 1,000 ml Med 08/24/20 07:00 Ordered IV ASDIRECTED Medication Orders Sodium Chloride (Normal Saline) 1,000 mls @ 500 mls/hr IV ASDIRECTED FRANC Last Admin: 08/24/20 00:46 Dose: 500 mls/hr Documented by: RHETT Sodium Chloride (Normal Saline) 1,000 mls @ 300 mls/hr IV ASDIRECTED FRANC Last Admin: 08/24/20 06:00 Dose: 300 mls/hr Documented by: Infusion: 08/24/20 06:00 Dose: 300 mls/hr Documented by: Admin: 08/24/20 02:42 Dose: 300 mls/hr Documented by: RHETT Sodium Chloride (Normal Saline) 1,000 mls @ 100 mls/hr IV ASDIRECTED FRANC Labs: Laboratory Tests 08/24/20 08/24/20 08/24/20 Range/Units 00:20 00:20 00:20 WBC 14.0 H (4.5-11.0) K/uL RBC 4.15 L (4.30-5.90) M/uL Hgb 13.3 D (12.0-15.0) g/dL Hct 37.4 L (40.0-54.0) % MCV 90 (80-98) fL MCH 32 H (27-31) pg MCHC 36 (32-36) % Plt Count 236 (150-400) K/uL Neut % (Auto) 87 H (36-66) % Lymph % (Auto) 5 L (24-44) % [place] % (Auto) 9 H (2-6) % Eos % (Auto) 0 L (2-4) % Baso % (Auto) 0 (0-1) % Puncture Site ABG pH (7.350-7.450) ABG pCO2 (35.0-42.0) mmHg ABG pO2 (75.0-100.0) mmHg ABG HCO3 (22.0-26.0) mmol/L ABG Total CO2 (23.0-27.0) mmol/L ABG O2 Saturation (95.0-98.0) % ABG O2 Content (15.0-23.0) %vol ABG Base Excess mm/L ABG Hemoglobin (13.5-18.0) g/dL ABG Oxyhemoglobin % ABG Carboxyhemoglobin (0.0-1.6) % ABG Methemoglobin % Kenney Test O2 Delivery Device Sodium 114 L* (140-148) mmol/L Potassium 3.2 L (3.6-5.2) mmol/L Chloride 76 L (100-108) mmol/L Carbon Dioxide 12 L D (21-32) mmol/L Anion Gap 29.2 H (5.0-14.0) mmol/L BUN 5 L D (7-18) mg/dL Creatinine 1.0 (0.8-1.3) mg/dL Est Cr Clr Drug Dosing 76.00 mL/min Estimated GFR (MDRD) > 60 (>60) Glucose 197 H (74-106) mg/dL Calcium 8.8 (8.5-10.1) mg/dL Magnesium (1.8-2.4) mg/dL Total Bilirubin 0.7 (0.2-1.0) mg/dL AST 79 H (15-37) U/L ALT 92 H (12-78) U/L Alkaline Phosphatase 77 (46-116) U/L Troponin I < 0.017 (0.000-0.056) ng/mL Total Protein 7.4 (6.4-8.2) g/dL Albumin 4.3 (3.4-5.0) g/dL Globulin 3.1 (2.3-3.5) g/dL Albumin/Globulin Ratio 1.4 (1.2-2.2) Amylase (25-115) U/L Lipase (73-393) U/L Urine Color (YELLOW) Urine Appearance (CLEAR) Urine pH (5.0-8.0) Ur Specific Proctor (1.008-1.030) Urine Protein (NEGATIVE) mg/dL Urine Glucose (UA) (NEGATIVE) mg/dL Urine Ketones (NEGATIVE) mg/dL Urine Occult Blood (NEGATIVE) Urine Nitrite (NEGATIVE) Urine Bilirubin (NEGATIVE) Urine Urobilinogen (0.2-1.0) EU/dL Ur Leukocyte Esterase (NEGATIVE) Urine RBC (0-5) Urine WBC (0-5) Ur Epithelial Cells Amorphous Sediment Urine Bacteria Urine Mucus Urine Opiates Screen (NEGATIVE) Ur Oxycodone Screen (NEGATIVE) Urine Methadone Screen (NEGATIVE) Ur Propoxyphene Screen (NEGATIVE) Ur Barbiturates Screen (NEGATIVE) Ur Tricyclics Screen (NEGATIVE) Ur Phencyclidine Scrn (NEGATIVE) Ur Amphetamine Screen (NEGATIVE) U Methamphetamines Scrn (NEGATIVE) Urine MDMA Screen (NEGATIVE) U Benzodiazepines Scrn (NEGATIVE) U Cocaine Metab Screen (NEGATIVE) U Marijuana (THC) Screen (NEGATIVE) Ethyl Alcohol mg/dL 08/24/20 08/24/20 08/24/20 Range/Units 00:20 00:50 01:00 WBC (4.5-11.0) K/uL RBC (4.30-5.90) M/uL Hgb (12.0-15.0) g/dL Hct (40.0-54.0) % MCV (80-98) fL MCH (27-31) pg MCHC (32-36) % Plt Count (150-400) K/uL Neut % (Auto) (36-66) % Lymph % (Auto) (24-44) % [place] % (Auto) (2-6) % Eos % (Auto) (2-4) % Baso % (Auto) (0-1) % Puncture Site ABG pH (7.350-7.450) ABG pCO2 (35.0-42.0) mmHg ABG pO2 (75.0-100.0) mmHg ABG HCO3 (22.0-26.0) mmol/L ABG Total CO2 (23.0-27.0) mmol/L ABG O2 Saturation (95.0-98.0) % ABG O2 Content (15.0-23.0) %vol ABG Base Excess mm/L ABG Hemoglobin (13.5-18.0) g/dL ABG Oxyhemoglobin % ABG Carboxyhemoglobin (0.0-1.6) % ABG Methemoglobin % Kenney Test O2 Delivery Device Sodium (140-148) mmol/L Potassium (3.6-5.2) mmol/L Chloride (100-108) mmol/L Carbon Dioxide (21-32) mmol/L Anion Gap (5.0-14.0) mmol/L BUN (7-18) mg/dL Creatinine (0.8-1.3) mg/dL Est Cr Clr Drug Dosing mL/min Estimated GFR (MDRD) (>60) Glucose (74-106) mg/dL Calcium (8.5-10.1) mg/dL Magnesium (1.8-2.4) mg/dL Total Bilirubin (0.2-1.0) mg/dL AST (15-37) U/L ALT (12-78) U/L Alkaline Phosphatase (46-116) U/L Troponin I (0.000-0.056) ng/mL Total Protein (6.4-8.2) g/dL Albumin (3.4-5.0) g/dL Globulin (2.3-3.5) g/dL Albumin/Globulin Ratio (1.2-2.2) Amylase 43 (25-115) U/L Lipase 103 (73-393) U/L Urine Color Yellow (YELLOW) Urine Appearance Clear (CLEAR) Urine pH 5.0 (5.0-8.0) Ur Specific Proctor >= 1.030 (1.008-1.030) Urine Protein 30 H (NEGATIVE) mg/dL Urine Glucose (UA) 100 H (NEGATIVE) mg/dL Urine Ketones 40 H (NEGATIVE) mg/dL Urine Occult Blood Small H (NEGATIVE) Urine Nitrite Negative (NEGATIVE) Urine Bilirubin Negative (NEGATIVE) Urine Urobilinogen 0.2 (0.2-1.0) EU/dL Ur Leukocyte Esterase Negative (NEGATIVE) Urine RBC 0-5 (0-5) Urine WBC 0-5 (0-5) Ur Epithelial Cells Few Amorphous Sediment Few Urine Bacteria Few Urine Mucus Not seen Urine Opiates Screen (NEGATIVE) Ur Oxycodone Screen (NEGATIVE) Urine Methadone Screen (NEGATIVE) Ur Propoxyphene Screen (NEGATIVE) Ur Barbiturates Screen (NEGATIVE) Ur Tricyclics Screen (NEGATIVE) Ur Phencyclidine Scrn (NEGATIVE) Ur Amphetamine Screen (NEGATIVE) U Methamphetamines Scrn (NEGATIVE) Urine MDMA Screen (NEGATIVE) U Benzodiazepines Scrn (NEGATIVE) U Cocaine Metab Screen (NEGATIVE) U Marijuana (THC) Screen (NEGATIVE) Ethyl Alcohol 54 mg/dL 08/24/20 08/24/20 08/24/20 Range/Units 01:05 01:05 01:05 WBC (4.5-11.0) K/uL RBC (4.30-5.90) M/uL Hgb (12.0-15.0) g/dL Hct (40.0-54.0) % MCV (80-98) fL MCH (27-31) pg MCHC (32-36) % Plt Count (150-400) K/uL Neut % (Auto) (36-66) % Lymph % (Auto) (24-44) % [place] % (Auto) (2-6) % Eos % (Auto) (2-4) % Baso % (Auto) (0-1) % Puncture Site R radial ABG pH 7.316 L (7.350-7.450) ABG pCO2 22.3 L (35.0-42.0) mmHg ABG pO2 86.0 (75.0-100.0) mmHg ABG HCO3 11.1 L (22.0-26.0) mmol/L ABG Total CO2 10.1 L (23.0-27.0) mmol/L ABG O2 Saturation 95.6 (95.0-98.0) % ABG O2 Content 17.4 (15.0-23.0) %vol ABG Base Excess -13.3 mm/L ABG Hemoglobin 13.2 L (13.5-18.0) g/dL ABG Oxyhemoglobin 93.8 % ABG Carboxyhemoglobin 0.8 (0.0-1.6) % ABG Methemoglobin 1.1 % Kenney Test Ok O2 Delivery Device Room air Sodium (140-148) mmol/L Potassium (3.6-5.2) mmol/L Chloride (100-108) mmol/L Carbon Dioxide (21-32) mmol/L Anion Gap (5.0-14.0) mmol/L BUN (7-18) mg/dL Creatinine (0.8-1.3) mg/dL Est Cr Clr Drug Dosing mL/min Estimated GFR (MDRD) (>60) Glucose (74-106) mg/dL Calcium (8.5-10.1) mg/dL Magnesium 1.3 L (1.8-2.4) mg/dL Total Bilirubin (0.2-1.0) mg/dL AST (15-37) U/L ALT (12-78) U/L Alkaline Phosphatase (46-116) U/L Troponin I (0.000-0.056) ng/mL Total Protein (6.4-8.2) g/dL Albumin (3.4-5.0) g/dL Globulin (2.3-3.5) g/dL Albumin/Globulin Ratio (1.2-2.2) Amylase (25-115) U/L Lipase (73-393) U/L Urine Color (YELLOW) Urine Appearance (CLEAR) Urine pH (5.0-8.0) Ur Specific [place]ctor (1.008-1.030) Urine Protein (NEGATIVE) mg/dL Urine Glucose (UA) (NEGATIVE) mg/dL Urine Ketones (NEGATIVE) mg/dL Urine Occult Blood (NEGATIVE) Urine Nitrite (NEGATIVE) Urine Bilirubin (NEGATIVE) Urine Urobilinogen (0.2-1.0) EU/dL Ur Leukocyte Esterase (NEGATIVE) Urine RBC (0-5) Urine WBC (0-5) Ur Epithelial Cells Amorphous Sediment Urine Bacteria Urine Mucus Urine Opiates Screen Negative (NEGATIVE) Ur Oxycodone Screen Negative (NEGATIVE) Urine Methadone Screen Negative (NEGATIVE) Ur Propoxyphene Screen Negative (NEGATIVE) Ur Barbiturates Screen Negative (NEGATIVE) Ur Tricyclics Screen Negative (NEGATIVE) Ur Phencyclidine Scrn Negative (NEGATIVE) Ur Amphetamine Screen Negative (NEGATIVE) U Methamphetamines Scrn Negative (NEGATIVE) Urine MDMA Screen Negative (NEGATIVE) U Benzodiazepines Scrn Negative (NEGATIVE) U Cocaine Metab Screen Negative (NEGATIVE) U Marijuana (THC) Screen Negative (NEGATIVE) Ethyl Alcohol mg/dL 08/24/20 08/24/20 Range/Units 06:10 06:10 WBC (4.5-11.0) K/uL RBC (4.30-5.90) M/uL Hgb (12.0-15.0) g/dL Hct (40.0-54.0) % MCV (80-98) fL MCH (27-31) pg MCHC (32-36) % Plt Count (150-400) K/uL Neut % (Auto) (36-66) % Lymph % (Auto) (24-44) % [place] % (Auto) (2-6) % Eos % (Auto) (2-4) % Baso % (Auto) (0-1) % Puncture Site ABG pH (7.350-7.450) ABG pCO2 (35.0-42.0) mmHg ABG pO2 (75.0-100.0) mmHg ABG HCO3 (22.0-26.0) mmol/L ABG Total CO2 (23.0-27.0) mmol/L ABG O2 Saturation (95.0-98.0) % ABG O2 Content (15.0-23.0) %vol ABG Base Excess mm/L ABG Hemoglobin (13.5-18.0) g/dL ABG Oxyhemoglobin % ABG Carboxyhemoglobin (0.0-1.6) % ABG Methemoglobin % Kenney Test O2 Delivery Device Sodium 117 L* (140-148) mmol/L Potassium 4.1 (3.6-5.2) mmol/L Chloride 84 L (100-108) mmol/L Carbon Dioxide 25 (21-32) mmol/L Anion Gap 12.1 (5.0-14.0) mmol/L BUN 5 L (7-18) mg/dL Creatinine 0.7 L (0.8-1.3) mg/dL Est Cr Clr Drug Dosing 108.57 mL/min Estimated GFR (MDRD) > 60 (>60) Glucose 150 H (74-106) mg/dL Calcium 8.5 (8.5-10.1) mg/dL Magnesium 1.6 L (1.8-2.4) mg/dL Total Bilirubin (0.2-1.0) mg/dL AST (15-37) U/L ALT (12-78) U/L Alkaline Phosphatase (46-116) U/L Troponin I (0.000-0.056) ng/mL Total Protein (6.4-8.2) g/dL Albumin (3.4-5.0) g/dL Globulin (2.3-3.5) g/dL Albumin/Globulin Ratio (1.2-2.2) Amylase (25-115) U/L Lipase (73-393) U/L Urine Color (YELLOW) Urine Appearance (CLEAR) Urine pH (5.0-8.0) Ur Specific Proctor (1.008-1.030) Urine Protein (NEGATIVE) mg/dL Urine Glucose (UA) (NEGATIVE) mg/dL Urine Ketones (NEGATIVE) mg/dL Urine Occult Blood (NEGATIVE) Urine Nitrite (NEGATIVE) Urine Bilirubin (NEGATIVE) Urine Urobilinogen (0.2-1.0) EU/dL Ur Leukocyte Esterase (NEGATIVE) Urine RBC (0-5) Urine WBC (0-5) Ur Epithelial Cells Amorphous Sediment Urine Bacteria Urine Mucus Urine Opiates Screen (NEGATIVE) Ur Oxycodone Screen (NEGATIVE) Urine Methadone Screen (NEGATIVE) Ur Propoxyphene Screen (NEGATIVE) Ur Barbiturates Screen (NEGATIVE) Ur Tricyclics Screen (NEGATIVE) Ur Phencyclidine Scrn (NEGATIVE) Ur Amphetamine Screen (NEGATIVE) U Methamphetamines Scrn (NEGATIVE) Urine MDMA Screen (NEGATIVE) U Benzodiazepines Scrn (NEGATIVE) U Cocaine Metab Screen (NEGATIVE) U Marijuana (THC) Screen (NEGATIVE) Ethyl Alcohol mg/dL Meds: Medications Generic Name Dose Route Start Last Admin Trade Name Freq PRN Reason Stop Dose Admin Sodium Chloride 1,000 mls @ 500 mls/hr 08/24/20 00:45 08/24/20 00:46 Normal Saline IV 500 mls/hr ASDIRECTED FRANC Administration Sodium Chloride 1,000 mls @ 300 mls/hr 08/24/20 02:15 08/24/20 06:00 Normal Saline IV 300 mls/hr ASDIRECTED FRANC Administration Sodium Chloride 1,000 mls @ 100 mls/hr 08/24/20 07:00 Normal Saline IV ASDIRECTED FRANC Discontinued Medications Generic Name Dose Route Start Last Admin Trade Name Freq PRN Reason Stop Dose Admin Potassium Chloride 20 meq/ 100 mls @ 50 mls/hr 08/24/20 01:36 08/24/20 02:08 Premix IV 08/24/20 03:35 50 mls/hr ONETIME ONE Administration Magnesium Sulfate 2 gm in 50 mls @ 12.5 mls/hr 08/24/20 02:40 08/24/20 03:20 Magnesium Sulfate In Water Premix IV 08/24/20 06:39 12.5 mls/hr ONETIME ONE Administration Lidocaine HCl 2 ml 08/24/20 01:55 08/24/20 02:09 Xylocaine-Mpf 1% INJECT 08/24/20 01:56 2 ml ONETIME ONE Administration Lorazepam 0.5 mg 08/24/20 00:40 08/24/20 00:46 Ativan IVPUSH 08/24/20 00:41 0.5 mg ONETIME ONE Administration Lorazepam 0.5 mg 08/24/20 02:08 08/24/20 02:44 Ativan PO 08/24/20 02:09 0.5 mg ONETIME ONE Administration Lorazepam 1 mg 08/24/20 04:40 08/24/20 04:47 Ativan PO 08/24/20 04:41 1 mg ONETIME ONE Administration Ondansetron HCl 4 mg 08/24/20 00:39 08/24/20 00:47 Zofran IVPUSH 08/24/20 00:40 4 mg ONETIME ONE Administration Pantoprazole Sodium 40 mg 08/24/20 00:39 08/24/20 00:47 Protonix Iv IVPUSH 08/24/20 00:40 40 mg ONETIME ONE Administration - Re-Assessments/Exams Free Text/Narrative Re-Assessment/Exam: 08/24/20 01:04 na is 114, his co2 is 12. He has a k of 3.2. 08/24/20 01:12 pt had a normal trop 08/24/20 02:48 pt was to be transfered but no beds were available to the pt. [facility], [facility], [facility] , [facility] were contacted and did not have beds available to the pt. Departure - Departure Time of Disposition: 06:59 Disposition: Admitted As Inpatient 65 Condition: Fair Clinical Impression: Hyponatremia, Hypomagnesemia, Dehydration, ETOH abuse Referrals: PCP,None [Primary Care Provider] - Forms: ED Department Discharge Care Plan Goals: admit to Dr thompson Sepsis Event Note (ED) - Evaluation Sepsis Screening Result: No Definite Risk - Focused Exam Vital Signs: Vital Signs Temp Pulse Resp BP Pulse Ox 08/24/20 06:03 95 17 117/62 98 08/24/20 04:47 105 H 19 138/91 H 96 08/24/20 02:46 37.1 C 118 H 23 H 132/66 95 08/24/20 00:13 36.4 C 108 H 20 164/90 H 98 08/24/20 00:05 36.4 C 108 H 20 164/90 H 98 - My Orders Last 24 Hours: My Active Orders 08/24/20 00:45 Sodium Chloride 0.9% [Normal Saline] 1,000 ml IV ASDIRECTED 08/24/20 00:52 Chest 1V Frontal [CR] Stat 08/24/20 02:15 Sodium Chloride 0.9% [Normal Saline] 1,000 ml IV ASDIRECTED 08/24/20 07:00 Sodium Chloride 0.9% [Normal Saline] 1,000 ml IV ASDIRECTED - Assessment/Plan Last 24 Hours: My Active Orders 08/24/20 00:45 Sodium Chloride 0.9% [Normal Saline] 1,000 ml IV ASDIRECTED 08/24/20 00:52 Chest 1V Frontal [CR] Stat 08/24/20 02:15 Sodium Chloride 0.9% [Normal Saline] 1,000 ml IV ASDIRECTED 08/24/20 07:00 Sodium Chloride 0.9% [Normal Saline] 1,000 ml IV ASDIRECTED
[2020-08-24] MEDS ORDERED: Pantoprazole 40 MG Vial IVPUSH ONE (00:39)
[2020-08-24] MEDS ORDERED: Ondansetron 4 MG/2 ML SDV IVPUSH ONE (00:39)
[2020-08-24] MEDS ORDERED: LORazepam 2 MG/ML SDV IVPUSH ONE (00:40)
[2020-08-24] MEDS ORDERED: Sodium Chloride 0.9% 1,000 ML IV SCH ×3 (00:45→09:49)
[2020-08-24] MEDS ORDERED: Potassium Chloride 20 MEQ in Premix Bag 1 BAG IV ONE (01:36)
[2020-08-24] MEDS ORDERED: LORazepam 0.5 MG Tab PO ONE (02:08)
[2020-08-24] MEDS ORDERED: Magnesium Sulfate/Water 2 GM/50 ML BAG IV ONE (02:40)
[2020-08-24] MEDS: Sodium Chloride 0.9% 1,000 ML IV SCH ×2 (02:42→06:00)
[2020-08-24] MEDS ORDERED: LORazepam 1 MG Tab PO ONE (04:40)
--- NOTE | 2020-08-24 08:59 | CR ---
CHEST: Portable 08/24/2020 at 1:12 AM CLINICAL HISTORY:SOB, rapid heart rate COMPARISON:None FINDINGS: The heart size, pulmonary vascularity and hilar structures are normal. No infiltrate effusion or pneumothorax is seen. There are atherosclerotic changes in the aorta. IMPRESSION: No acute cardiopulmonary process. If clinical symptomatology persists or worsens a repeat exam is recommended.
--- NOTE | 2020-08-24 09:14 | PCM.HP.2 ---
H&P History of Present Illness - General Date of Service: 08/24/20 Admit Problem/Dx: Admission Diagnosis/Problem Admission Diagnosis/Problem Hyponatremia Source of Information: Patient, Provider History Limitations: Reports: No Limitations - History of Present Illness Initial Comments - Free Text/Narative: CC: I thought I was having a heart attack HPI: Shiva presents to the emergency room with palpitations and concerns that he was having a heart attack. He did not ever have chest pain necessarily but thought with the pounding in his chest that something bad was happening because of his family history. He is feeling better now after some IV fluids in the emergency room. He does note that he has been drinking fairly heavily and fairly regularly since [employer] and he has been at home. He has not been working. He has had some heartburn lately. He does get short of breath with moderate activity. He has not had recent difficulties with fevers, chills, shortness of breath at rest. No change in bowel or bladder habits. No sick contacts that he is aware of. No headaches. He does report that he did get diaphoretic last night. He has had some nausea and several episodes of vomiting in the past 24 hours. Work-up in the emergency room revealed profound hyponatremia as well as hypokalemia. There is mild evidence for alcohol withdrawal with some tremors. Troponin level is normal. He will be admitted for treatment of his severe hyponatremia and management of alcohol withdrawal. denies pain Pain Score (Numeric/FACES): 0 - Related Data Allergies/Adverse Reactions: Allergies Allergy/AdvReac Type Severity Reaction Status Date / Time No Known Allergies Allergy Verified 08/24/20 00:02 Home Medications: Home Meds Ibuprofen [Motrin] 800 mg PO Q8H PRN 05/27/17 [History] Losartan [Cozaar] 100 mg PO DAILY 05/27/17 [History] Triamcinolone Acetonide [Kenalog 0.1% Crm] 1 applic TOP ASDIRECTED PRN 05/27/17 [History] atenoloL [Atenolol] 100 mg PO DAILY 05/27/17 [History] predniSONE [Prednisone] 20 mg PO DAILY PRN 07/07/18 [History] amLODIPine [Norvasc] 5 mg PO DAILY 08/24/20 [History] Past Medical History HEENT History: Reports: Impaired Vision Cardiovascular History: Reports: High Cholesterol, Hypertension Gastrointestinal History: Reports: Colon Polyp Genitourinary History: Reports: Other (See Below) Other Genitourinary History: ED Musculoskeletal History: Reports: Fracture, Gout, Osteoarthritis Neurological History: Reports: Concussion Psychiatric History: Reports: ADD Endocrine/Metabolic History: Reports: Obesity/BMI 30+ Hematologic History: Reports: Blood Transfusion(s) Oncologic (Cancer) History: Reports: Other (See Below) 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 Dermatologic History: Reports: Other (See Below) Other Dermatologic History: rash on back - Infectious Disease History Infectious Disease History: Reports: Chicken Pox, Measles - Past Surgical History HEENT Surgical History: Reports: Oral Surgery, Tonsillectomy Cardiovascular Surgical History: Reports: None GI Surgical History: Reports: Colonoscopy Male Surgical History: Reports: None Endocrine Surgical History: Reports: None Neurological Surgical History: Reports: None Musculoskeletal Surgical History: Reports: Other (See Below) Other Musculoskeletal Surgeries/Procedures:: Right elbow reconstruction Social & Family History - Family History Family Medical History: No Pertinent Family History Neurological: Reports: CVA - Tobacco Use Tobacco Use Status *Q: Never Tobacco User - Caffeine Use Caffeine Use: Reports: Soda - Alcohol Use Alcohol Use History: Yes Days Per Week of Alcohol Use: 7 Number of Drinks Per Day: 7 Total Drinks Per Week: 49 - Recreational Drug Use Recreational Drug Use: Yes Drug Use in Last 12 Months: Yes Recreational Drug Type: Reports: Marijuana/Hashish Recreational Drug Use Frequency: Rarely H&P Review of Systems - Review of Systems: Review Of Systems: See Below Free Text/Narrative: A complete 12 point review of systems was obtained. Pertinent positives and negatives are noted in the history of present illness. All other systems were reviewed and were negative except as noted. Exam - Exam Exam: See Below - Vital Signs Vital Signs: Last Vital Signs Temp 37.1 C 08/24/20 02:46 Pulse 86 08/24/20 07:42 Resp 13 08/24/20 07:42 BP 128/71 08/24/20 07:42 Pulse Ox 96 08/24/20 07:42 Weight: 99.79 kg - Exam Quality Assessment: No: Supplemental Oxygen General: Alert, Oriented, Cooperative. No: Mild Distress HEENT: No: Conjunctiva Clear (injected ), Mucosa Moist & [place] (dry), Scleral Icterus Neck: Supple, Trachea Midline Lungs: Clear to Auscultation, Normal Respiratory Effort Cardiovascular: Regular Rate, Regular Rhythm. No: Systolic Murmur GI/Abdominal Exam: Normal Bowel Sounds, Soft, Non-Tender, No Distention Back Exam: Normal Inspection, Full Range of Motion Extremities: No Pedal Edema. No: Increased Warmth Peripheral Pulses: 2+: Dorsalis Pedis (L), Dorsalis Pedis (R) Skin: Warm, Dry Neuro Extensive - Mental Status: Alert, Oriented x3, Nl Response to Commands Neuro Extensive - Motor, Sensory, Reflexes: Tremor (both hands and lower arms ). No: Dysarthria, Abnormal Motor Psychiatric: Alert, Normal Affect. No: Agitated - Patient Data Lab Results Last 24 hrs: Laboratory Results - last 24 hr 08/24/20 08/24/20 08/24/20 Range/Units 00:20 00:20 00:20 WBC 14.0 H (4.5-11.0) K/uL RBC 4.15 L (4.30-5.90) M/uL Hgb 13.3 D (12.0-15.0) g/dL Hct 37.4 L (40.0-54.0) % MCV 90 (80-98) fL MCH 32 H (27-31) pg MCHC 36 (32-36) % Plt Count 236 (150-400) K/uL Neut % (Auto) 87 H (36-66) % Lymph % (Auto) 5 L (24-44) % [place] % (Auto) 9 H (2-6) % Eos % (Auto) 0 L (2-4) % Baso % (Auto) 0 (0-1) % Puncture Site ABG pH (7.350-7.450) ABG pCO2 (35.0-42.0) mmHg ABG pO2 (75.0-100.0) mmHg ABG HCO3 (22.0-26.0) mmol/L ABG Total CO2 (23.0-27.0) mmol/L ABG O2 Saturation (95.0-98.0) % ABG O2 Content (15.0-23.0) %vol ABG Base Excess mm/L ABG Hemoglobin (13.5-18.0) g/dL ABG Oxyhemoglobin % ABG Carboxyhemoglobin (0.0-1.6) % ABG Methemoglobin % [place] Test O2 Delivery Device Sodium 114 L* (140-148) mmol/L Potassium 3.2 L (3.6-5.2) mmol/L Chloride 76 L (100-108) mmol/L Carbon Dioxide 12 L D (21-32) mmol/L Anion Gap 29.2 H (5.0-14.0) mmol/L BUN 5 L D (7-18) mg/dL Creatinine 1.0 (0.8-1.3) mg/dL Est Cr Clr Drug Dosing 76.00 mL/min Estimated GFR (MDRD) > 60 (>60) Glucose 197 H (74-106) mg/dL Calcium 8.8 (8.5-10.1) mg/dL Magnesium (1.8-2.4) mg/dL Total Bilirubin 0.7 (0.2-1.0) mg/dL AST 79 H (15-37) U/L ALT 92 H (12-78) U/L Alkaline Phosphatase 77 (46-116) U/L Troponin I < 0.017 (0.000-0.056) ng/mL Total Protein 7.4 (6.4-8.2) g/dL Albumin 4.3 (3.4-5.0) g/dL Globulin 3.1 (2.3-3.5) g/dL Albumin/Globulin Ratio 1.4 (1.2-2.2) Amylase (25-115) U/L Lipase (73-393) U/L Urine Color (YELLOW) Urine Appearance (CLEAR) Urine pH (5.0-8.0) Ur Specific [place] (1.008-1.030) Urine Protein (NEGATIVE) mg/dL Urine Glucose (UA) (NEGATIVE) mg/dL Urine Ketones (NEGATIVE) mg/dL Urine Occult Blood (NEGATIVE) Urine Nitrite (NEGATIVE) Urine Bilirubin (NEGATIVE) Urine Urobilinogen (0.2-1.0) EU/dL Ur Leukocyte Esterase (NEGATIVE) Urine RBC (0-5) Urine WBC (0-5) Ur Epithelial Cells Amorphous Sediment Urine Bacteria Urine Mucus Urine Opiates Screen (NEGATIVE) Ur Oxycodone Screen (NEGATIVE) Urine Methadone Screen (NEGATIVE) Ur Propoxyphene Screen (NEGATIVE) Ur Barbiturates Screen (NEGATIVE) Ur Tricyclics Screen (NEGATIVE) Ur Phencyclidine Scrn (NEGATIVE) Ur Amphetamine Screen (NEGATIVE) U Methamphetamines Scrn (NEGATIVE) Urine MDMA Screen (NEGATIVE) U Benzodiazepines Scrn (NEGATIVE) U Cocaine Metab Screen (NEGATIVE) U Marijuana (THC) Screen (NEGATIVE) Ethyl Alcohol mg/dL 08/24/20 08/24/20 08/24/20 Range/Units 00:20 00:50 01:00 WBC (4.5-11.0) K/uL RBC (4.30-5.90) M/uL Hgb (12.0-15.0) g/dL Hct (40.0-54.0) % MCV (80-98) fL MCH (27-31) pg MCHC (32-36) % Plt Count (150-400) K/uL Neut % (Auto) (36-66) % Lymph % (Auto) (24-44) % [place] % (Auto) (2-6) % Eos % (Auto) (2-4) % Baso % (Auto) (0-1) % Puncture Site ABG pH (7.350-7.450) ABG pCO2 (35.0-42.0) mmHg ABG pO2 (75.0-100.0) mmHg ABG HCO3 (22.0-26.0) mmol/L ABG Total CO2 (23.0-27.0) mmol/L ABG O2 Saturation (95.0-98.0) % ABG O2 Content (15.0-23.0) %vol ABG Base Excess mm/L ABG Hemoglobin (13.5-18.0) g/dL ABG Oxyhemoglobin % ABG Carboxyhemoglobin (0.0-1.6) % ABG Methemoglobin % [place] Test O2 Delivery Device Sodium (140-148) mmol/L Potassium (3.6-5.2) mmol/L Chloride (100-108) mmol/L Carbon Dioxide (21-32) mmol/L Anion Gap (5.0-14.0) mmol/L BUN (7-18) mg/dL Creatinine (0.8-1.3) mg/dL Est Cr Clr Drug Dosing mL/min Estimated GFR (MDRD) (>60) Glucose (74-106) mg/dL Calcium (8.5-10.1) mg/dL Magnesium (1.8-2.4) mg/dL Total Bilirubin (0.2-1.0) mg/dL AST (15-37) U/L ALT (12-78) U/L Alkaline Phosphatase (46-116) U/L Troponin I (0.000-0.056) ng/mL Total Protein (6.4-8.2) g/dL Albumin (3.4-5.0) g/dL Globulin (2.3-3.5) g/dL Albumin/Globulin Ratio (1.2-2.2) Amylase 43 (25-115) U/L Lipase 103 (73-393) U/L Urine Color Yellow (YELLOW) Urine Appearance Clear (CLEAR) Urine pH 5.0 (5.0-8.0) Ur Specific [place] >= 1.030 (1.008-1.030) Urine Protein 30 H (NEGATIVE) mg/dL Urine Glucose (UA) 100 H (NEGATIVE) mg/dL Urine Ketones 40 H (NEGATIVE) mg/dL Urine Occult Blood Small H (NEGATIVE) Urine Nitrite Negative (NEGATIVE) Urine Bilirubin Negative (NEGATIVE) Urine Urobilinogen 0.2 (0.2-1.0) EU/dL Ur Leukocyte Esterase Negative (NEGATIVE) Urine RBC 0-5 (0-5) Urine WBC 0-5 (0-5) Ur Epithelial Cells Few Amorphous Sediment Few Urine Bacteria Few Urine Mucus Not seen Urine Opiates Screen (NEGATIVE) Ur Oxycodone Screen (NEGATIVE) Urine Methadone Screen (NEGATIVE) Ur Propoxyphene Screen (NEGATIVE) Ur Barbiturates Screen (NEGATIVE) Ur Tricyclics Screen (NEGATIVE) Ur Phencyclidine Scrn (NEGATIVE) Ur Amphetamine Screen (NEGATIVE) U Methamphetamines Scrn (NEGATIVE) Urine MDMA Screen (NEGATIVE) U Benzodiazepines Scrn (NEGATIVE) U Cocaine Metab Screen (NEGATIVE) U Marijuana (THC) Screen (NEGATIVE) Ethyl Alcohol 54 mg/dL 08/24/20 08/24/20 08/24/20 Range/Units 01:05 01:05 01:05 WBC (4.5-11.0) K/uL RBC (4.30-5.90) M/uL Hgb (12.0-15.0) g/dL Hct (40.0-54.0) % MCV (80-98) fL MCH (27-31) pg MCHC (32-36) % Plt Count (150-400) K/uL Neut % (Auto) (36-66) % Lymph % (Auto) (24-44) % [place] % (Auto) (2-6) % Eos % (Auto) (2-4) % Baso % (Auto) (0-1) % Puncture Site R radial ABG pH 7.316 L (7.350-7.450) ABG pCO2 22.3 L (35.0-42.0) mmHg ABG pO2 86.0 (75.0-100.0) mmHg ABG HCO3 11.1 L (22.0-26.0) mmol/L ABG Total CO2 10.1 L (23.0-27.0) mmol/L ABG O2 Saturation 95.6 (95.0-98.0) % ABG O2 Content 17.4 (15.0-23.0) %vol ABG Base Excess -13.3 mm/L ABG Hemoglobin 13.2 L (13.5-18.0) g/dL ABG Oxyhemoglobin 93.8 % ABG Carboxyhemoglobin 0.8 (0.0-1.6) % ABG Methemoglobin 1.1 % [place] Test Ok O2 Delivery Device Room air Sodium (140-148) mmol/L Potassium (3.6-5.2) mmol/L Chloride (100-108) mmol/L Carbon Dioxide (21-32) mmol/L Anion Gap (5.0-14.0) mmol/L BUN (7-18) mg/dL Creatinine (0.8-1.3) mg/dL Est Cr Clr Drug Dosing mL/min Estimated GFR (MDRD) (>60) Glucose (74-106) mg/dL Calcium (8.5-10.1) mg/dL Magnesium 1.3 L (1.8-2.4) mg/dL Total Bilirubin (0.2-1.0) mg/dL AST (15-37) U/L ALT (12-78) U/L Alkaline Phosphatase (46-116) U/L Troponin I (0.000-0.056) ng/mL Total Protein (6.4-8.2) g/dL Albumin (3.4-5.0) g/dL Globulin (2.3-3.5) g/dL Albumin/Globulin Ratio (1.2-2.2) Amylase (25-115) U/L Lipase (73-393) U/L Urine Color (YELLOW) Urine Appearance (CLEAR) Urine pH (5.0-8.0) Ur Specific [place] (1.008-1.030) Urine Protein (NEGATIVE) mg/dL Urine Glucose (UA) (NEGATIVE) mg/dL Urine Ketones (NEGATIVE) mg/dL Urine Occult Blood (NEGATIVE) Urine Nitrite (NEGATIVE) Urine Bilirubin (NEGATIVE) Urine Urobilinogen (0.2-1.0) EU/dL Ur Leukocyte Esterase (NEGATIVE) Urine RBC (0-5) Urine WBC (0-5) Ur Epithelial Cells Amorphous Sediment Urine Bacteria Urine Mucus Urine Opiates Screen Negative (NEGATIVE) Ur Oxycodone Screen Negative (NEGATIVE) Urine Methadone Screen Negative (NEGATIVE) Ur Propoxyphene Screen Negative (NEGATIVE) Ur Barbiturates Screen Negative (NEGATIVE) Ur Tricyclics Screen Negative (NEGATIVE) Ur Phencyclidine Scrn Negative (NEGATIVE) Ur Amphetamine Screen Negative (NEGATIVE) U Methamphetamines Scrn Negative (NEGATIVE) Urine MDMA Screen Negative (NEGATIVE) U Benzodiazepines Scrn Negative (NEGATIVE) U Cocaine Metab Screen Negative (NEGATIVE) U Marijuana (THC) Screen Negative (NEGATIVE) Ethyl Alcohol mg/dL 08/24/20 08/24/20 Range/Units 06:10 06:10 WBC (4.5-11.0) K/uL RBC (4.30-5.90) M/uL Hgb (12.0-15.0) g/dL Hct (40.0-54.0) % MCV (80-98) fL MCH (27-31) pg MCHC (32-36) % Plt Count (150-400) K/uL Neut % (Auto) (36-66) % Lymph % (Auto) (24-44) % [place] % (Auto) (2-6) % Eos % (Auto) (2-4) % Baso % (Auto) (0-1) % Puncture Site ABG pH (7.350-7.450) ABG pCO2 (35.0-42.0) mmHg ABG pO2 (75.0-100.0) mmHg ABG HCO3 (22.0-26.0) mmol/L ABG Total CO2 (23.0-27.0) mmol/L ABG O2 Saturation (95.0-98.0) % ABG O2 Content (15.0-23.0) %vol ABG Base Excess mm/L ABG Hemoglobin (13.5-18.0) g/dL ABG Oxyhemoglobin % ABG Carboxyhemoglobin (0.0-1.6) % ABG Methemoglobin % [place] Test O2 Delivery Device Sodium 117 L* (140-148) mmol/L Potassium 4.1 (3.6-5.2) mmol/L Chloride 84 L (100-108) mmol/L Carbon Dioxide 25 (21-32) mmol/L Anion Gap 12.1 (5.0-14.0) mmol/L BUN 5 L (7-18) mg/dL Creatinine 0.7 L (0.8-1.3) mg/dL Est Cr Clr Drug Dosing 108.57 mL/min Estimated GFR (MDRD) > 60 (>60) Glucose 150 H (74-106) mg/dL Calcium 8.5 (8.5-10.1) mg/dL Magnesium 1.6 L (1.8-2.4) mg/dL Total Bilirubin (0.2-1.0) mg/dL AST (15-37) U/L ALT (12-78) U/L Alkaline Phosphatase (46-116) U/L Troponin I (0.000-0.056) ng/mL Total Protein (6.4-8.2) g/dL Albumin (3.4-5.0) g/dL Globulin (2.3-3.5) g/dL Albumin/Globulin Ratio (1.2-2.2) Amylase (25-115) U/L Lipase (73-393) U/L Urine Color (YELLOW) Urine Appearance (CLEAR) Urine pH (5.0-8.0) Ur Specific [place] (1.008-1.030) Urine Protein (NEGATIVE) mg/dL Urine Glucose (UA) (NEGATIVE) mg/dL Urine Ketones (NEGATIVE) mg/dL Urine Occult Blood (NEGATIVE) Urine Nitrite (NEGATIVE) Urine Bilirubin (NEGATIVE) Urine Urobilinogen (0.2-1.0) EU/dL Ur Leukocyte Esterase (NEGATIVE) Urine RBC (0-5) Urine WBC (0-5) Ur Epithelial Cells Amorphous Sediment Urine Bacteria Urine Mucus Urine Opiates Screen (NEGATIVE) Ur Oxycodone Screen (NEGATIVE) Urine Methadone Screen (NEGATIVE) Ur Propoxyphene Screen (NEGATIVE) Ur Barbiturates Screen (NEGATIVE) Ur Tricyclics Screen (NEGATIVE) Ur Phencyclidine Scrn (NEGATIVE) Ur Amphetamine Screen (NEGATIVE) U Methamphetamines Scrn (NEGATIVE) Urine MDMA Screen (NEGATIVE) U Benzodiazepines Scrn (NEGATIVE) U Cocaine Metab Screen (NEGATIVE) U Marijuana (THC) Screen (NEGATIVE) Ethyl Alcohol mg/dL Result Diagrams: 08/24/20 00:20 08/24/20 13:04 Jose Angel Results Last 24 hrs: Microbiology 08/24/20 00:48 Gastric Occult Blood - Final Gastric Fluid Imaging Impressions Last 24 hrs: CXR - image personally reviewed - lungs clear with no mass, infiltrate or effusion. heart size is normal. Sepsis Event Note - Evaluation Sepsis Screening Result: No Definite Risk - Focused Exam Vital Signs: Vital Signs Temp Pulse Resp BP Pulse Ox 08/24/20 07:42 86 13 128/71 96 08/24/20 07:14 98 15 131/77 97 08/24/20 06:03 95 17 117/62 98 08/24/20 04:47 105 H 19 138/91 H 96 08/24/20 02:46 37.1 C 118 H 23 H 132/66 95 08/24/20 00:13 36.4 C 108 H 20 164/90 H 98 08/24/20 00:05 36.4 C 108 H 20 164/90 H 98 *Q Meaningful Use (ADM) - VTE Risk Assess *Q Each Risk Factor Represents 1 Point: Obesity ( BMI > 25 kg/m2) Total Score 1 Point Risk Factors: 1 Each Risk Factor Represents 2 Points: Age 60 - 74 Years, Malignancy (present or previous) Total Score 2 Point Risk Factors: 4 Each Risk Factor Represents 3 Points: None Total Score 3 Point Risk Factors: 0 Each Risk Factor Represents 5 Points: None Total Score 5 Point Risk Factors: 0 Venous Thromboembolism Risk Factor Score *Q: 5 - Problem List (1) Hyponatremia SNOMED Code(s): 98506923 ICD Code: E87.1 - HYPO-OSMOLALITY AND HYPONATREMIA Status: Acute Current Visit: Yes (2) Alcohol withdrawal SNOMED Code(s): 676167247 ICD Code: F10.239 - ALCOHOL DEPENDENCE WITH WITHDRAWAL, UNSPECIFIED Status: Acute Current Visit: Yes Qualifiers: Complication of substance-induced condition: uncomplicated Qualified Code(s): F10.230 - Alcohol dependence with withdrawal, uncomplicated (3) Hypomagnesemia SNOMED Code(s): 985936645 ICD Code: E83.42 - HYPOMAGNESEMIA Status: Acute Current Visit: Yes (4) Hypokalemia due to loss of potassium SNOMED Code(s): 90117553 ICD Code: E87.6 - HYPOKALEMIA Status: Acute Current Visit: No Problem List Initiated/Reviewed/Updated: Yes Orders Last 24hrs: Active Orders 24 hr Category Date Time Status Patient Status Manage Transfer [TRANSFER] Routine ADT 08/24/20 09:06 Active Sodium Chloride 0.9% [Normal Saline] 1,000 ml Med 08/24/20 00:45 Active IV ASDIRECTED Sodium Chloride 0.9% [Normal Saline] 1,000 ml Med 08/24/20 02:15 Active IV ASDIRECTED Sodium Chloride 0.9% [Normal Saline] 1,000 ml Med 08/24/20 07:00 Active IV ASDIRECTED Resuscitation Status Routine Resus Stat 08/24/20 09:07 Ordered Medication Orders Sodium Chloride (Normal Saline) 1,000 mls @ 500 mls/hr IV ASDIRECTED [facility] Last Admin: 08/24/20 00:46 Dose: 500 mls/hr Documented by: SITZMEL Sodium Chloride (Normal Saline) 1,000 mls @ 300 mls/hr IV ASDIRECTED [facility]ANC Last Admin: 08/24/20 06:00 Dose: 300 mls/hr Documented by: Infusion: 08/24/20 06:00 Dose: 300 mls/hr Documented by: Admin: 08/24/20 02:42 Dose: 300 mls/hr Documented by: SITZMEL Sodium Chloride (Normal Saline) 1,000 mls @ 100 mls/hr IV ASDIRECTED [facility] Assessment/Plan Comment:: ASSESSMENT AND PLAN - Severe hyponatremia-probably secondary to poor intake as well as his heavy alcohol use. Level slightly better with hydration overnight. I anticipate this will improve further with hydration. No neurologic compromise or seizures at this time. -Continue IV fluids -Repeat sodium this afternoon Alcohol dependence with alcohol withdrawal-mild withdrawal symptoms at this time including mostly tremors. He has been drinking regularly and heavily. He is interested in cutting down. -CIWAA protocol with lorazepam -Supplement thiamine and folate Hypokalemia-this did improve with supplementation overnight. -Recheck this afternoon Hypomagnesemia-this will be supplemented over the next 12 hours or so. History of lymphoma-in remission at this time. Maintenance issues - - DVT prophylaxis -mechanical - GI prophylaxis -PPI - Nutrition -regular - Frankel catheter -not indicated CODE STATUS -full code Admission justification -this patient will be admitted for inpatient services and is medically appropriate meeting medical necessity for inpatient admission as outlined in my documentation. I reasonably expect the patient will require inpatient services that span a period time over 2 midnights. I reasonably expect this patient to be discharged or transferred within 96 hours after admission to the [facility]. Disposition -I would anticipate discharge home after the hospital stay Primary care physician -Dr Kade Torres M.D. - Mortality Measure Prognosis:: Good
[2020-08-24] MEDS ORDERED: Ibuprofen 600 MG Tab PO PRN (09:49)
[2020-08-24] MEDS ORDERED: Ondansetron 4 MG Tab.DIS PO PRN (09:49)
[2020-08-24] MEDS ORDERED: LORazepam 2 MG/ML SDV IVPUSH PRN (09:49)
[2020-08-24] MEDS ORDERED: LORazepam 1 MG Tab PO SCH (09:49)
[2020-08-24] MEDS ORDERED: Magnesium Hydroxide 400 MG/5 ML Susp 30 ML Cup PO PRN (09:49)
[2020-08-24] MEDS ORDERED: LORazepam 2 MG/ML SDV IV SCH (09:49)
[2020-08-24] MEDS ORDERED: Ondansetron 4 MG/2 ML SDV IV PRN (09:49)
[2020-08-24] MEDS ORDERED: Acetaminophen 325 MG Tab PO PRN (09:49)
[2020-08-24] MEDS ORDERED: Thiamine 100 MG Tab PO SCH (10:00)
[2020-08-24] MEDS ORDERED: Atenolol 25 MG Tab PO SCH (10:00)
[2020-08-24] MEDS ORDERED: Losartan 50 MG Tab PO SCH (10:00)
[2020-08-24] MEDS ORDERED: Folic Acid 1 MG Tab PO SCH (10:00)
[2020-08-24] MEDS ORDERED: amLODIPine 5 MG Tab PO SCH (10:00)
[2020-08-24] MEDS ORDERED: Pantoprazole 40 MG Tab.CR PO SCH (10:00)
[2020-08-24] MEDS: Magnesium Sulfate/Water 2 GM/50 ML BAG IV SCH ×3 (12:14→22:24)
[2020-08-25 06:14] VITALS: BP 130/79; PULSE 60
[2020-08-25] MEDS ORDERED: Potassium Chloride 20 MEQ Tab.ER PO ONE (09:00)
--- NOTE | 2020-08-25 10:30 | PCM.DCSUM1 ---
Discharge Summary - Hospital Course Brief History: 59-year-old male with history of lymphoma, alcohol dependence and hypertension who presented with palpitations and concerned that he was having a heart attack. He was admitted for management of severe hyponatremia along with hypokalemia and mild alcohol withdrawal. Diagnosis: Stroke: No - Discharge Data Discharge Date: 08/25/20 Discharge Disposition: Home, Self-Care 01 Condition: Good - Referral to Home Health Primary Care Physician: PCP None - Discharge Diagnosis/Problem(s) (1) Hyponatremia SNOMED Code(s): 67215049 ICD Code: E87.1 - HYPO-OSMOLALITY AND HYPONATREMIA Status: Acute (2) Alcohol withdrawal SNOMED Code(s): 385485255 ICD Code: F10.239 - ALCOHOL DEPENDENCE WITH WITHDRAWAL, UNSPECIFIED Status: Acute Qualifiers: Complication of substance-induced condition: uncomplicated Qualified Code(s): F10.230 - Alcohol dependence with withdrawal, uncomplicated (3) Hypomagnesemia SNOMED Code(s): 241228143 ICD Code: E83.42 - HYPOMAGNESEMIA Status: Acute (4) Hypokalemia due to loss of potassium SNOMED Code(s): 00546424 ICD Code: E87.6 - HYPOKALEMIA Status: Acute - Patient Summary/Data Hospital Course: Shiva presented to the emergency room with palpitations and concerns that he was having a heart attack. Work-up in the emergency room did not reveal any evidence for heart attack but did reveal profound hyponatremia as well as hypokalemia and hypomagnesemia. There is evidence for mild alcohol withdrawal with tremulousness. Initially he was treated in the emergency room with aggressive IV fluids. The plan had been for transfer because no beds were available but no beds were available elsewhere so he ended up being admitted here after all. We provided IV fluids for the low sodium since we thought this was hypovolemic. We supplemented magnesium and potassium. He did receive several doses of lorazepam to help with very mild alcohol withdrawal. Repeat sodium and potassium later in the day after admission showed levels were improving but remained quite low. By the morning after admission the patient had significant improvement but not quite normalization of his sodium. His potassium level was much better and had normalized. He was not having any evidence for alcohol withdrawal. He felt much better and essentially back to his usual self. He was safe for discharge at this point. I have expected it would take 2 or 3 days to optimize his electrolytes but he improved extremely quickly. I think that early discharge will benefit him to avoid any sort of Covid exposure given his history of lymphoma and weakened immune system. He was discharged home after about 24 hours in the hospital with a very rapid improvement that was quite unexpected. We did talk about his alcohol use that likely led to his being admitted. He reports that he has had previous episodes of sobriety that have been years long. He has some tools left from previous stints in treatment. He knows where the Alcoholics Anonymous group meets and when they meet. He thinks he can do this on his own but will talk to his primary care if he is having difficulty. - Patient Instructions Diet: Regular Diet as Tolerated Activity: As Tolerated Showering/Bathing: May Shower - Discharge Plan Home Medications: Home Meds Ibuprofen [Motrin] 800 mg PO Q8H PRN 05/27/17 [History] Losartan [Cozaar] 100 mg PO DAILY 05/27/17 [History] Triamcinolone Acetonide [Kenalog 0.1% Crm] 1 applic TOP ASDIRECTED PRN 05/27/17 [History] atenoloL [Atenolol] 100 mg PO DAILY 05/27/17 [History] predniSONE [Prednisone] 20 mg PO DAILY PRN 07/07/18 [History] amLODIPine [Norvasc] 5 mg PO DAILY 08/24/20 [History] Oxygen Therapy Mode: Room Air Patient Handouts: Alcohol Abuse and Dependence Information, Adult Referrals: Franko Frank MD [Physician] - (1-2 weeks - f/u hospital stay for low sodium level, low potassium ) - Discharge Summary/Plan Comment DC Time >30 min.: No - Patient Data Vitals - Most Recent: Last Vital Signs Temp 36.8 C 08/25/20 04:00 Pulse 60 08/25/20 06:00 Resp 14 08/25/20 06:00 BP 130/79 08/25/20 06:00 Pulse Ox 97 08/25/20 06:00 Weight - Most Recent: 100.244 kg I&O - Last 24 hours: Intake & Output 08/24/20 08/25/20 08/25/20 22:59 06:59 14:59 Intake Total 1589 Output Total 1600 1425 Balance - Lab Results - Last 24 hrs: Laboratory Results - last 24 hr 08/24/20 08/25/20 08/25/20 Range/Units 13:04 04:30 04:30 WBC 3.7 L (4.5-11.0) K/uL RBC 3.62 L (4.30-5.90) M/uL Hgb 11.6 L (12.0-15.0) g/dL Hct 33.6 L (40.0-54.0) % MCV 93 (80-98) fL MCH 32 H (27-31) pg MCHC 35 (32-36) % Plt Count 162 (150-400) K/uL Sodium 126 L 129 L (140-148) mmol/L Potassium 4.6 3.6 (3.6-5.2) mmol/L Chloride 92 L 94 L (100-108) mmol/L Carbon Dioxide 27 27 (21-32) mmol/L Anion Gap 11.6 11.6 (5.0-14.0) mmol/L BUN 5 L 6 L (7-18) mg/dL Creatinine 0.8 0.9 (0.8-1.3) mg/dL Est Cr Clr Drug Dosing 91.81 81.60 mL/min Estimated GFR (MDRD) > 60 > 60 (>60) Glucose 112 H 99 (74-106) mg/dL Calcium 8.5 8.0 L (8.5-10.1) mg/dL Total Bilirubin 0.7 (0.2-1.0) mg/dL AST 116 H (15-37) U/L ALT 99 H (12-78) U/L Alkaline Phosphatase 57 (46-116) U/L Total Protein 5.8 L (6.4-8.2) g/dL Albumin 3.3 L (3.4-5.0) g/dL Globulin 2.5 (2.3-3.5) g/dL Albumin/Globulin Ratio 1.3 (1.2-2.2) Med Orders - Current: Current Medications Acetaminophen (Tylenol) 650 mg PO Q4H PRN PRN Reason: Pain (Mild 1-3)/fever Amlodipine Besylate (Norvasc) 5 mg PO DAILY [facility] Last Admin: 08/24/20 12:20 Dose: 5 mg Documented by: Atenolol (Tenormin) 100 mg PO DAILY [facility] Last Admin: 08/24/20 12:20 Dose: 100 mg Documented by: Folic Acid (Folic Acid) 1 mg PO DAILY [facility] Last Admin: 08/24/20 12:19 Dose: 1 mg Documented by: Sodium Chloride (Normal Saline) 1,000 mls @ 100 mls/hr IV ASDIRECTED [facility] Last Admin: 08/25/20 03:52 Dose: 100 mls/hr Documented by: Ibuprofen (Motrin) 600 mg PO Q6H PRN PRN Reason: Pain/Fever Lorazepam (Ativan) 0.5 mg IVPUSH Q4H PRN PRN Reason: Nausea/Vomiting Lorazepam (Ativan) 0 mg PO ASDIRECTED [facility]; Protocol Lorazepam (Ativan) 0 mg IV ASDIRECTED [facility]; Protocol Losartan Potassium (Cozaar) 100 mg PO DAILY [facility] Last Admin: 08/24/20 12:18 Dose: 100 mg Documented by: Magnesium Hydroxide (Milk Of Magnesia) 30 ml PO Q12H PRN PRN Reason: Constipation Ondansetron HCl (Zofran) 4 mg IV Q6H PRN PRN Reason: Nausea/Vomiting Ondansetron HCl (Zofran Odt) 4 mg PO Q6H PRN PRN Reason: Nausea able to take PO Pantoprazole Sodium (Protonix) 40 mg PO ACBREAKFAST [facility] Last Admin: 08/24/20 12:19 Dose: 40 mg Documented by: Senna/Docusate Sodium (Senna Plus) 1 tab PO BID PRN PRN Reason: Constipation Thiamine HCl (Vitamin B-1) 100 mg PO DAILY [facility] Last Admin: 08/24/20 12:19 Dose: 100 mg Documented by: Discontinued Medications Sodium Chloride (Normal Saline) 1,000 mls @ 500 mls/hr IV ASDIRECTED [facility] Last Admin: 08/24/20 00:46 Dose: 500 mls/hr Documented by: Potassium Chloride 20 meq/ (Premix) 100 mls @ 50 mls/hr IV ONETIME ONE Stop: 08/24/20 03:35 Last Admin: 08/24/20 02:08 Dose: 50 mls/hr Documented by: Sodium Chloride (Normal Saline) 1,000 mls @ 300 mls/hr IV ASDIRECTED [facility] Last Admin: 08/24/20 06:00 Dose: 300 mls/hr Documented by: Magnesium Sulfate (Magnesium Sulfate In Water Premix) 2 gm in 50 mls @ 12.5 mls/hr IV ONETIME ONE Stop: 08/24/20 06:39 Last Admin: 08/24/20 03:20 Dose: 12.5 mls/hr Documented by: Sodium Chloride (Normal Saline) 1,000 mls @ 100 mls/hr IV ASDIRECTED [facility] Magnesium Sulfate (Magnesium Sulfate In Water Premix) 2 gm in 50 mls @ 12.5 mls/hr IV Q6H [facility] Stop: 08/25/20 01:59 Last Admin: 08/24/20 22:24 Dose: 12.5 mls/hr Documented by: Lidocaine HCl (Xylocaine-Mpf 1%) 2 ml INJECT ONETIME ONE Stop: 08/24/20 01:56 Last Admin: 08/24/20 02:09 Dose: 2 ml Documented by: Lorazepam (Ativan) 0.5 mg IVPUSH ONETIME ONE Stop: 08/24/20 00:41 Last Admin: 08/24/20 00:46 Dose: 0.5 mg Documented by: Lorazepam (Ativan) 0.5 mg PO ONETIME ONE Stop: 08/24/20 02:09 Last Admin: 08/24/20 02:44 Dose: 0.5 mg Documented by: Lorazepam (Ativan) 1 mg PO ONETIME ONE Stop: 08/24/20 04:41 Last Admin: 08/24/20 04:47 Dose: 1 mg Documented by: Ondansetron HCl (Zofran) 4 mg IVPUSH ONETIME ONE Stop: 08/24/20 00:40 Last Admin: 08/24/20 00:47 Dose: 4 mg Documented by: Pantoprazole Sodium (Protonix Iv) 40 mg IVPUSH ONETIME ONE Stop: 08/24/20 00:40 Last Admin: 08/24/20 00:47 Dose: 40 mg Documented by: Potassium Chloride (Klor-Con M20) 40 meq PO ONETIME ONE Stop: 08/25/20 09:01
== END 2020-08-25 09:45 | disposition home or self-care (01) | DRG 897 ==
LOC: JP.ED 23:57 → JP.ICU 08-24 09:06
PROVIDERS: ADMIT Internal Medicine; ATTEND Internal Medicine
DX: F10.230 Alcohol dependence with withdrawal, uncomplicated (principal); E87.1 Hypo-osmolality and hyponatremia; C85.90 Non-Hodgkin lymphoma, unspecified, unspecified site; E87.6 Hypokalemia; E83.42 Hypomagnesemia; H54.7 Unspecified visual loss; E78.00 Pure hypercholesterolemia, unspecified; I10 Essential (primary) hypertension; E66.9 Obesity, unspecified; M10.9 Gout, unspecified; M19.90 Unspecified osteoarthritis, unspecified site; F90.9 Attention-deficit hyperactivity disorder, unspecified type; E86.0 Dehydration; Y90.2 Blood alcohol level of 40-59 mg/100 ml; Z79.52 Long term (current) use of systemic steroids; Z79.899 Other long term (current) drug therapy
CPT/HCPCS: 36415; 36600; 71045; 71045-26; 80048; 80053; 80305-QW; 80307; 81001; 82150; 82271; 82803; 83690; 83735; 84484; 85025; 85027; A9270-GY; C9113; J2001; J2060; J2405; J3475; J3480; J7030

== ENCOUNTER 2022-08-07 10:22 | Day surgery (SDC) | payer MEDICAID ==
[~2022-08-07 10:22] MED LIST: Midazolam 1 MG/ML 2 ML SDV ONE; Propofol 200 MG/20 ML SDV ONE; fentaNYL 50 MCG/ML SDV ONE
[2022-08-07] MEDS: Sodium Chloride 0.9% 1,000 ML IV SCH (11:17)
[2022-08-07] MEDS ORDERED: Propofol 200 MG/20 ML SDV ONE (11:44)
[2022-08-07 12:49] VITALS: BP 144/89; PULSE 75
== END 2022-08-07 13:01 | disposition home or self-care (01) ==
LOC: JP.SDS 10:22
PROVIDERS: ATTEND Surgery
DX: Z12.11 Encounter for screening for malignant neoplasm of colon (principal); D12.4 Benign neoplasm of descending colon; I10 Essential (primary) hypertension; M10.9 Gout, unspecified; E66.9 Obesity, unspecified
CPT/HCPCS: 45380; 45385; J2250; J2704; J3010; J7030

== ENCOUNTER 2022-09-03 14:01 | Emergency (ER) | payer MEDICAID ==
[2022-09-03 14:54] VITALS: BP 158/83; PULSE 83
[2022-09-03 15:39] LABS: ESTIMATED GFR 99 mL/min (>60)
== END 2022-09-03 17:00 | disposition home or self-care (01) ==
LOC: JP.ED 14:01
DX: E87.1 Hypo-osmolality and hyponatremia (principal); F10.10 Alcohol abuse, uncomplicated; I10 Essential (primary) hypertension; E66.9 Obesity, unspecified; Z68.37 Body mass index [BMI] 37.0-37.9, adult; Z79.899 Other long term (current) drug therapy; Z79.82 Long term (current) use of aspirin; Z87.891 Personal history of nicotine dependence
CPT/HCPCS: 36415; 80053; 81001; 85025; 99282; 99284

== ENCOUNTER 2022-10-24 06:52 | Inpatient (IN) | payer MEDICAID ==
[2022-10-24] MEDS ORDERED: Ondansetron 4 MG/2 ML SDV IVPUSH ONE (07:20)
[2022-10-24] MEDS ORDERED: Sodium Chloride 0.9% 1,000 ML IV SCH ×3 (07:30→16:45)
[2022-10-24 07:54] LABS: ESTIMATED GFR 96 mL/min (>60)
[2022-10-24 08:02] LABS: CORONAVIRUS COVID-19 NAA NEGATIVE (NEGATIVE)
[2022-10-24] MEDS ORDERED: Acetaminophen 325 MG Tab PO PRN (10:05)
[2022-10-24] MEDS ORDERED: Sodium Chloride 0.9% 10 ML Syringe FLUSH PRN (10:05)
[2022-10-24] MEDS: Aspirin 81 MG Tab.Chew PO SCH (10:53)
[2022-10-24] MEDS: Folic Acid 1 MG Tab PO SCH (10:53)
[2022-10-24] MEDS: Losartan 50 MG Tab PO SCH (10:54)
[2022-10-24] MEDS: Atenolol 25 MG Tab PO SCH (10:56)
[2022-10-24] MEDS: Enoxaparin 40 MG/0.4 ML Syringe SUBCUT SCH (10:58)
[2022-10-24] MEDS ORDERED: MVI, Adult with Vitamin K 10 ML, Thiamine 100 MG, Folic Acid 1 MG, Magnesium Sulfate 2 ... IV ONE ×5 (11:00)
[2022-10-24] MEDS ORDERED: Thiamine 100 MG Tab PO SCH (11:00)
[2022-10-24] MEDS: Ondansetron 4 MG/2 ML SDV IV PRN ×3 (12:51→21:09)
[2022-10-24] MEDS ORDERED: Amiodarone 200 MG Tab PO SCH (21:00)
[2022-10-25] MEDS: Ondansetron 4 MG/2 ML SDV IV PRN (01:08)
[2022-10-25] MEDS: Aspirin 81 MG Tab.Chew PO SCH (08:36)
[2022-10-25] MEDS: Losartan 50 MG Tab PO SCH (08:37)
[2022-10-25] MEDS: Atenolol 25 MG Tab PO SCH (08:37)
[2022-10-25] MEDS: Thiamine 100 MG Tab PO SCH (08:40)
[2022-10-25] MEDS: Folic Acid 1 MG Tab PO SCH (08:41)
[2022-10-25] MEDS ORDERED: Potassium Chloride 20 MEQ Tab.ER PO ONE (09:00)
[2022-10-25] MEDS ORDERED: LORazepam 1 MG Tab PO SCH (10:45)
[2022-10-25] MEDS: Enoxaparin 40 MG/0.4 ML Syringe SUBCUT SCH (11:09)
[2022-10-26] MEDS: Aspirin 81 MG Tab.Chew PO SCH (08:13)
[2022-10-26] MEDS: Atenolol 25 MG Tab PO SCH (08:13)
[2022-10-26] MEDS: Losartan 50 MG Tab PO SCH (08:16)
[2022-10-26 08:17] VITALS: BP 130/92
[2022-10-26] MEDS: Folic Acid 1 MG Tab PO SCH (08:17)
[2022-10-26] MEDS: Thiamine 100 MG Tab PO SCH (08:21)
[2022-10-26] MEDS ORDERED: Potassium Chloride 20 MEQ Tab.ER PO ONE (08:30)
[2022-10-26 08:48] VITALS: PULSE 90
== END 2022-10-26 11:22 | disposition home or self-care (01) | DRG 641 ==
LOC: JP.ED 06:52 → JP.ICU 08:57
PROVIDERS: ADMIT Hospitalist; ATTEND Hospitalist
DX: E87.1 Hypo-osmolality and hyponatremia (principal); E87.6 Hypokalemia; F10.20 Alcohol dependence, uncomplicated; I10 Essential (primary) hypertension; H54.7 Unspecified visual loss; E78.00 Pure hypercholesterolemia, unspecified; Z20.822 Contact with and (suspected) exposure to COVID-19; M19.90 Unspecified osteoarthritis, unspecified site; E66.9 Obesity, unspecified; Z86.16 Personal history of COVID-19; Z79.899 Other long term (current) drug therapy; Z79.82 Long term (current) use of aspirin; Z68.36 Body mass index [BMI] 36.0-36.9, adult
CPT/HCPCS: 0241U; 36415; 80048; 80053; 80307; 83690; 84295; 85025; 96361; 96374; 99222; 99232; 99238; 99284; 99285-25; A9270-GY; J1650; J2405; J3411; J3475; J3490; J7030

== ENCOUNTER 2023-03-05 12:54 | Emergency (ER) | payer MEDICAID ==
[2023-03-05] MEDS ORDERED: Sodium Chloride 0.9% 10 ML Syringe FLUSH PRN ×2 (13:54→14:59)
[2023-03-05 14:09] LABS: BASOPHILS ABSOLUTE AUTO 0.07 K/uL (0.00-0.10); BASOPHILS PERCENT AUTO 0.4 % (0.1-1.3); EOSINOPHILS PERCENT AUTO 0.1 % (0.0-5.4); HEMATOCRIT 36.5 % (38.4-49.7); HEMOGLOBIN 13.7 g/dL (12.9-16.9); IMMATURE GRAN ABSOLUTE AUTO 0.33 K/uL (0.00-0.23); IMMATURE GRAN PERCENT AUTO 1.9 % (0.0-0.7); LYMPHOCYTES ABSOLUTE AUTO 0.35 K/uL (0.8-3.3); MEAN CORPUSCULAR HEMOGLOBIN 33.7 pg (31.6-35.5); MEAN CORPUSCULAR HGB CONC 37.5 g/dL (31.6-35.5); MEAN CORPUSCULAR VOLUME 89.9 fL (81.4-99.0); MONOCYTES ABSOLUTE AUTO 1.46 K/uL (0.20-0.90); MONOCYTES PERCENT AUTO 8.2 % (3.3-12.6); NEUTROPHILS ABSOLUTE AUTO 15.49 K/uL (1.0-7.6); NEUTROPHILS PERCENT AUTO 87.4 % (40.0-78.1); PLATELET COUNT,PLT 268 K/uL (130-375); RED BLOOD CELL COUNT 4.06 M/uL (4.14-5.76); WHITE BLOOD CELL COUNT,WBC 17.7 K/uL (3.2-11.0)
[2023-03-05 14:10] LABS: EOSINOPHILS ABSOLUTE AUTO 0.02 K/uL (0.00-0.40)
[2023-03-05 14:28] LABS: A/G RATIO 1.1 (1.2-2.2); ALANINE AMINOTRANSFERASE,ALT 59 U/L (12-78); ALBUMIN 3.5 g/dL (3.4-5.0); ALKALINE PHOSPHATASE 74 U/L (46-116); ASPARTATE AMNIOTRANSFERASE,AST 40 U/L (15-37); BILIRUBIN TOTAL 0.7 mg/dL (0.2-1.0); BLOOD UREA NITROGEN,BUN 7 mg/dL (7-18); CALCIUM 9.1 mg/dL (8.5-10.1); CARBON DIOXIDE,CO2 26 mmol/L (21-32); CHLORIDE,CL 87 mmol/L (100-108); CREATININE 0.8 mg/dL (0.8-1.3); EST CRCL DRUG DOSING (CG) 88.36 mL/min; ESTIMATED GFR 99 mL/min (>60); GLUCOSE RANDOM 131 mg/dL (74-106); LIPASE 47 U/L (73-393); PROTEIN TOTAL,TP 6.7 g/dL (6.4-8.2); SODIUM,NA 122 mmol/L (140-148)
[2023-03-05] MEDS ORDERED: Pantoprazole 40 MG Vial IVPUSH ONE (14:59)
[2023-03-05] MEDS ORDERED: Sodium Chloride 0.9% 50 ML IV ONE (15:01)
[2023-03-05] MEDS ORDERED: Sodium Chloride 0.9% 10 ML Syringe FLUSH ONE (15:01)
[2023-03-05] MEDS ORDERED: Iopamidol 612 MG/ML 100 ML Bottle IV SCH (15:15)
[2023-03-05 15:33] VITALS: BP 144/77; PULSE 74
[2023-03-05] MEDS ORDERED: Sodium Chloride 0.9% 1,000 ML IV ONE (16:35)
[2023-03-05] MEDS ORDERED: Sodium Chloride 0.9% 1,000 ML IV SCH (16:45)
== END 2023-03-05 17:54 ==
LOC: JP.ED 12:54
DX: K56.50 Intestinal adhesions [bands], unspecified as to partial versus complete obstruction (principal); E87.1 Hypo-osmolality and hyponatremia; E78.00 Pure hypercholesterolemia, unspecified; I10 Essential (primary) hypertension; M10.9 Gout, unspecified; M19.90 Unspecified osteoarthritis, unspecified site; E66.9 Obesity, unspecified; Z68.37 Body mass index [BMI] 37.0-37.9, adult; Z79.82 Long term (current) use of aspirin; Z79.899 Other long term (current) drug therapy; Z86.16 Personal history of COVID-19
CPT/HCPCS: 36415; 43752; 74177; 80053; 83605; 83690; 85025; 96361; 96374; 99285; C9113; J3490; J7030; Q9967

== ENCOUNTER 2023-03-20 07:31 | Day surgery (SDC) | payer MEDICAID ==
[2023-03-20] MEDS ORDERED: Midazolam 1 MG/ML 2 ML SDV ONE (07:59)
[2023-03-20] MEDS ORDERED: Propofol 200 MG/20 ML SDV ONE ×2 (07:59→09:05)
[2023-03-20] MEDS ORDERED: fentaNYL 50 MCG/ML SDV ONE (07:59)
[2023-03-20] MEDS ORDERED: Sodium Chloride 0.9% 1,000 ML IV SCH ×2 (08:15→09:30)
[2023-03-20 09:53] VITALS: BP 115/64
[2023-03-20 10:03] VITALS: PULSE 59
== END 2023-03-20 10:12 | disposition home or self-care (01) ==
LOC: JP.SDS 07:31
PROVIDERS: ATTEND Surgery
DX: Z12.11 Encounter for screening for malignant neoplasm of colon (principal); K57.30 Diverticulosis of large intestine without perforation or abscess without bleeding; I10 Essential (primary) hypertension; K56.609 Unspecified intestinal obstruction, unspecified as to partial versus complete obstruction; F10.20 Alcohol dependence, uncomplicated; R79.89 Other specified abnormal findings of blood chemistry; Z86.010 Personal history of colon polyps; Z85.818 Personal history of malignant neoplasm of other sites of lip, oral cavity, and pharynx
CPT/HCPCS: 45378; J2250; J2704; J3010; J7030

== ENCOUNTER 2024-05-17 08:11 | Day surgery (SDC) | payer MEDICAID ==
[~2024-05-17 08:11] MED LIST changes: +Sodium Chloride 0.9% 1,000 ML IV SCH; +ceFAZolin 2 GM in Premix Bag 1 BAG IV ONE; +fentaNYL 100 MCG/2 ML SDV ONE; -fentaNYL 50 MCG/ML SDV ONE
[2024-05-17 08:40] LABS: HEMATOCRIT 35.4 % (38.4-49.7); HEMOGLOBIN 13.3 g/dL (12.9-16.9); MEAN CORPUSCULAR HEMOGLOBIN 34.2 pg (31.6-35.5); MEAN CORPUSCULAR HGB CONC 37.6 g/dL (31.6-35.5); RED BLOOD CELL COUNT 3.89 M/uL (4.14-5.76)
[2024-05-17 08:56] LABS: A/G RATIO 1.2 (1.2-2.2); ALANINE AMINOTRANSFERASE,ALT 64 U/L (12-78); ALKALINE PHOSPHATASE 89 U/L (46-116); ASPARTATE AMNIOTRANSFERASE,AST 69 U/L (15-37); BILIRUBIN TOTAL 0.8 mg/dL (0.2-1.0); BLOOD UREA NITROGEN,BUN 4 mg/dL (7-18); CARBON DIOXIDE,CO2 29 mmol/L (21-32); CHLORIDE,CL 95 mmol/L (100-108); CREATININE 0.8 mg/dL (0.8-1.3); EST CRCL DRUG DOSING (CG) 90.25 mL/min; ESTIMATED GFR 99 mL/min (>60); GLUCOSE RANDOM 112 mg/dL (74-106); POTASSIUM,K 4.8 mmol/L (3.6-5.2); PROTEIN TOTAL,TP 7.3 g/dL (6.4-8.2); SODIUM,NA 132 mmol/L (140-148)
[2024-05-17 08:58] LABS: ANION GAP 12.8 mmol/L (5.0-14.0)
[2024-05-17] MEDS: Sodium Chloride 0.9% 1,000 ML IV SCH (09:02)
[2024-05-17] MEDS: ceFAZolin 2 GM in Premix Bag 1 BAG IV ONE (09:50)
[2024-05-17] MEDS ORDERED: Propofol 200 MG/20 ML SDV ONE ×2 (09:56→10:14)
[2024-05-17] MEDS: Lidocaine 1% with EPINEPHrine 1:100,000 50 ML MDV ONE (10:49)
[2024-05-17] MEDS: Bupivacaine 0.5% 50 ML MDV ONE (10:49)
[2024-05-17 11:28] VITALS: BP 120/69; PULSE 70
== END 2024-05-17 11:30 | disposition home or self-care (01) ==
LOC: JP.SDS 08:11
PROVIDERS: ATTEND Surgery
DX: N62 Hypertrophy of breast (principal)
CPT/HCPCS: 19120; 36415; 80053; 85027; 88307; J0665; J0690; J2250; J2704; J3010; J7030

== ENCOUNTER 2025-01-30 13:39 | Emergency (ER) | payer MEDICARE, BC ==
[2025-01-30 14:44] LABS: BASOPHILS ABSOLUTE AUTO 0.03 K/uL (0.00-0.10); BASOPHILS PERCENT AUTO 0.2 % (0.1-1.3); EOSINOPHILS PERCENT AUTO 0.1 % (0.0-5.4); HEMATOCRIT 31.8 % (38.4-49.7); IMMATURE GRAN ABSOLUTE AUTO 0.28 K/uL (0.00-0.23); IMMATURE GRAN PERCENT AUTO 1.8 % (0.0-0.7); LYMPHOCYTES ABSOLUTE AUTO 0.12 K/uL (0.8-3.3); LYMPHOCYTES PERCENT AUTO 0.8 % (11.4-47.7); MEAN CORPUSCULAR HEMOGLOBIN 33.9 pg (31.6-35.5); MEAN CORPUSCULAR HGB CONC 40.9 g/dL (31.6-35.5); MONOCYTES ABSOLUTE AUTO 1.96 K/uL (0.20-0.90); MONOCYTES PERCENT AUTO 12.5 % (3.3-12.6); NEUTROPHILS ABSOLUTE AUTO 13.31 K/uL (1.0-7.6); NEUTROPHILS PERCENT AUTO 84.6 % (40.0-78.1); PLATELET COUNT,PLT 165 K/uL (130-375); RED BLOOD CELL COUNT 3.83 M/uL (4.14-5.76); WHITE BLOOD CELL COUNT,WBC 15.7 K/uL (3.2-11.0)
[2025-01-30 14:46] LABS: EOSINOPHILS ABSOLUTE AUTO 0.01 K/uL (0.00-0.40)
[2025-01-30 14:53] LABS: ALANINE AMINOTRANSFERASE,ALT 64 U/L (12-78); ALBUMIN 3.1 g/dL (3.4-5.0); ALKALINE PHOSPHATASE 101 U/L (46-116); ASPARTATE AMNIOTRANSFERASE,AST 130 U/L (15-37); BILIRUBIN TOTAL 1.7 mg/dL (0.2-1.0); BLOOD UREA NITROGEN,BUN 3 mg/dL (7-18); CALCIUM 8.1 mg/dL (8.5-10.1); CARBON DIOXIDE,CO2 21 mmol/L (21-32); CHLORIDE,CL 66 mmol/L (100-108); CREATININE 0.9 mg/dL (0.8-1.3); EST CRCL DRUG DOSING (CG) 79.17 mL/min; ESTIMATED GFR 95 mL/min (>60); GLUCOSE RANDOM 134 mg/dL (74-106); POTASSIUM,K 3.3 mmol/L (3.6-5.2); PROTEIN TOTAL,TP 6.1 g/dL (6.4-8.2)
[2025-01-30 14:54] LABS: ANION GAP 15.3 mmol/L (5.0-14.0); SODIUM,NA 99 mmol/L (140-148)
[2025-01-30 16:29] LABS: APPEARANCE,URINE CLEAR (CLEAR); BILIRUBIN,URINE NEGATIVE (NEGATIVE); COLOR,URINE YELLOW (YELLOW); GLUCOSE,URINE NEGATIVE (NEGATIVE); KETONES,URINE 15 mg/dL (NEGATIVE); LEUKOCYTE ESTERASE,URINE NEGATIVE (NEGATIVE); NITRITE,URINE NEGATIVE (NEGATIVE); OCCULT BLOOD,URINE MODERATE (NEGATIVE); PH,URINE 6.5 (5.0-8.0); PROTEIN,URINE 30 mg/dL (NEGATIVE); RBC,URINE 0-5 (0-5); UROBILINOGEN,URINE 0.2 EU/dL (0.2-1.0); WBC,URINE 0-5 (0-5)
[2025-01-30 16:30] LABS: AMORPHOUS SEDIMENT,URINE NOT SEEN; BACTERIA,URINE FEW; EPITHELIAL CELLS,URINE NOT SEEN; MUCUS,URINE NOT SEEN
[2025-01-30] MEDS ORDERED: Sodium Chloride 0.9% 1,000 ML IV SCH (18:15)
[2025-01-30] MEDS: LORazepam 2 MG/ML SDV IVPUSH ONE (19:45)
[2025-01-30 20:04] VITALS: BP 134/74; PULSE 65
== END 2025-01-30 21:00 ==
LOC: JP.ED 13:39
DX: E87.1 Hypo-osmolality and hyponatremia (principal); I10 Essential (primary) hypertension; Z88.8 Allergy status to other drugs, medicaments and biological substances; Z79.82 Long term (current) use of aspirin; Z86.16 Personal history of COVID-19; Z79.899 Other long term (current) drug therapy
CPT/HCPCS: 36415; 51702; 51798; 70450; 70486; 72125; 76377; 80053; 80307; 81001; 82550; 83605; 84478; 85025; 96374; 99285; J2060

== ENCOUNTER 2025-04-13 13:51 | Emergency (ER) | payer MEDICARE, BC ==
[2025-04-13 14:49] LABS: INR 1.4
[2025-04-13 14:52] LABS: A/G RATIO 1.3 (1.2-2.2); ALANINE AMINOTRANSFERASE,ALT 36 U/L (12-78); ASPARTATE AMNIOTRANSFERASE,AST 56 U/L (15-37); BILIRUBIN TOTAL 2.3 mg/dL (0.2-1.0); BLOOD UREA NITROGEN,BUN 5 mg/dL (7-18); CARBON DIOXIDE,CO2 26 mmol/L (21-32); CHLORIDE,CL 73 mmol/L (100-108); CREATININE 0.6 mg/dL (0.8-1.3); EST CRCL DRUG DOSING (CG) 118.75 mL/min; ESTIMATED GFR 107 mL/min (>60); GLUCOSE RANDOM 106 mg/dL (74-106); POTASSIUM,K 3.8 mmol/L (3.6-5.2); PROTEIN TOTAL,TP 6.1 g/dL (6.4-8.2)
[2025-04-13 15:00] LABS: BASOPHILS PERCENT AUTO 0.1 % (0.1-1.3); EOSINOPHILS PERCENT AUTO 0.2 % (0.0-5.4); IMMATURE GRAN ABSOLUTE AUTO 0.11 K/uL (0.00-0.23); IMMATURE GRAN PERCENT AUTO 1.1 % (0.0-0.7); LYMPHOCYTES ABSOLUTE AUTO 0.22 K/uL (0.8-3.3); LYMPHOCYTES PERCENT AUTO 2.2 % (11.4-47.7); MONOCYTES ABSOLUTE AUTO 1.17 K/uL (0.20-0.90); MONOCYTES PERCENT AUTO 11.6 % (3.3-12.6); NEUTROPHILS ABSOLUTE AUTO 8.52 K/uL (1.0-7.6); NEUTROPHILS PERCENT AUTO 84.8 % (40.0-78.1); PLATELET COUNT,PLT 129 K/uL (130-375); RED BLOOD CELL COUNT 3.75 M/uL (4.14-5.76); WHITE BLOOD CELL COUNT,WBC 10.1 K/uL (3.2-11.0)
[2025-04-13 15:01] LABS: BASOPHILS ABSOLUTE AUTO 0.01 K/uL (0.00-0.10); EOSINOPHILS ABSOLUTE AUTO 0.02 K/uL (0.00-0.40)
[2025-04-13 15:03] LABS: SODIUM,NA 109 mmol/L (140-148)
[2025-04-13 15:25] LABS: AMPHETAMINES SCREEN, URINE NEGATIVE (NEGATIVE); METHADONE SCREEN, URINE NEGATIVE (NEGATIVE); METHAMPHETAMINES SCREEN, URINE NEGATIVE (NEGATIVE); OXYCODONE SCREEN,URINE NEGATIVE (NEGATIVE)
[2025-04-13 15:26] LABS: PROPOXYPHENE SCREEN,URINE NEGATIVE (NEGATIVE); THC SCREEN,URINE 50 NG/ML NEGATIVE (NEGATIVE)
[2025-04-13 15:27] LABS: APPEARANCE,URINE CLOUDY (CLEAR); GLUCOSE,URINE NEGATIVE (NEGATIVE); OCCULT BLOOD,URINE TRACE-INTACT (NEGATIVE)
[2025-04-13 15:34] LABS: EPITHELIAL CELLS,URINE NOT SEEN
[2025-04-13 19:47] VITALS: BP 131/62; PULSE 84
[2025-04-13 20:39] LABS: BLOOD UREA NITROGEN,BUN 5.0 mg/dL (7-18); CARBON DIOXIDE,CO2 27.0 mmol/L (21-32); CHLORIDE,CL 79.0 mmol/L (100-108); CREATININE 0.7 mg/dL (0.8-1.3); EST CRCL DRUG DOSING (CG) 101.79 mL/min; ESTIMATED GFR 102.0 mL/min (>60); GLUCOSE RANDOM 87.0 mg/dL (74-106); POTASSIUM,K 3.2 mmol/L (3.6-5.2)
[2025-04-13 20:40] LABS: SODIUM,NA 115.0 mmol/L (140-148)
[2025-04-15 20:29] LABS: URINE OSMOLALITY 184 mOsm/kg (50-800)
== END 2025-04-13 20:35 ==
LOC: JP.ED 13:51
DX: E87.1 Hypo-osmolality and hyponatremia (principal); F10.20 Alcohol dependence, uncomplicated; I10 Essential (primary) hypertension; E66.9 Obesity, unspecified; Z79.899 Other long term (current) drug therapy; Z86.16 Personal history of COVID-19; Z68.34 Body mass index [BMI] 34.0-34.9, adult; Z79.01 Long term (current) use of anticoagulants
CPT/HCPCS: 36415; 80048; 80053; 80305; 80307; 81001; 83735; 83935; 84295; 85025; 85610; 87086; 87088; 87186; 96360; 96361; 99284; 99285; A9270; J7030

== ENCOUNTER 2025-04-25 20:48 | Emergency (ER) | payer MEDICARE, BC ==
[2025-04-25 20:59] LABS: BASOPHILS ABSOLUTE AUTO 0.08 K/uL (0.00-0.10); BASOPHILS PERCENT AUTO 1.2 % (0.1-1.3); EOSINOPHILS ABSOLUTE AUTO 0.04 K/uL (0.00-0.40); EOSINOPHILS PERCENT AUTO 0.6 % (0.0-5.4); IMMATURE GRAN ABSOLUTE AUTO 0.06 K/uL (0.00-0.23); IMMATURE GRAN PERCENT AUTO 0.9 % (0.0-0.7); LYMPHOCYTES ABSOLUTE AUTO 1.02 K/uL (0.8-3.3); LYMPHOCYTES PERCENT AUTO 15.4 % (11.4-47.7); MONOCYTES ABSOLUTE AUTO 0.85 K/uL (0.20-0.90); MONOCYTES PERCENT AUTO 12.8 % (3.3-12.6); NEUTROPHILS ABSOLUTE AUTO 4.57 K/uL (1.0-7.6); NEUTROPHILS PERCENT AUTO 69.1 % (40.0-78.1); PLATELET COUNT,PLT 298 K/uL (130-375); RED BLOOD CELL COUNT 4.04 M/uL (4.14-5.76); WHITE BLOOD CELL COUNT,WBC 6.6 K/uL (3.2-11.0)
[2025-04-25 21:21] LABS: A/G RATIO 1.1 (1.2-2.2); ALANINE AMINOTRANSFERASE,ALT 29 U/L (12-78); ASPARTATE AMNIOTRANSFERASE,AST 22 U/L (15-37); BILIRUBIN TOTAL 0.3 mg/dL (0.2-1.0); BLOOD UREA NITROGEN,BUN 4 mg/dL (7-18); CARBON DIOXIDE,CO2 26 mmol/L (21-32); CHLORIDE,CL 89 mmol/L (100-108); CREATININE 0.7 mg/dL (0.8-1.3); EST CRCL DRUG DOSING (CG) 101.79 mL/min; ESTIMATED GFR 102 mL/min (>60); GLUCOSE RANDOM 116 mg/dL (74-106); POTASSIUM,K 3.6 mmol/L (3.6-5.2); PROTEIN TOTAL,TP 6.2 g/dL (6.4-8.2); SODIUM,NA 126 mmol/L (140-148)
[2025-04-25 21:28] LABS: AMPHETAMINES SCREEN, URINE NEGATIVE (NEGATIVE); METHADONE SCREEN, URINE NEGATIVE (NEGATIVE); METHAMPHETAMINES SCREEN, URINE NEGATIVE (NEGATIVE); OXYCODONE SCREEN,URINE NEGATIVE (NEGATIVE); PROPOXYPHENE SCREEN,URINE NEGATIVE (NEGATIVE); THC SCREEN,URINE 50 NG/ML NEGATIVE (NEGATIVE)
[2025-04-26 00:40] LABS: INR 1.1
[2025-04-26] MEDS: Thiamine 200 MG/2 ML MDV IVPUSH ONE (00:43)
[2025-04-26 02:52] VITALS: BP 123/78; PULSE 91
[2025-04-30 09:39] LABS: VITAMIN B6 PYRIDOXAL 5-PHOSPH 290.7 nmol/L (20.0-125.0)
== END 2025-04-26 02:10 | disposition home or self-care (01) ==
LOC: JP.ED 20:48
DX: S02.40CA Maxillary fracture, right side, initial encounter for closed fracture (principal); S02.841A Fracture of lateral orbital wall, right side, initial encounter for closed fracture; S00.83XA Contusion of other part of head, initial encounter; I10 Essential (primary) hypertension; F10.229 Alcohol dependence with intoxication, unspecified; E66.9 Obesity, unspecified; Z86.16 Personal history of COVID-19; Z79.01 Long term (current) use of anticoagulants; Y90.8 Blood alcohol level of 240 mg/100 ml or more; Z68.33 Body mass index [BMI] 33.0-33.9, adult; Z79.899 Other long term (current) drug therapy; W01.198A Fall on same level from slipping, tripping and stumbling with subsequent striking against other object, initial encounter
CPT/HCPCS: 36415; 70450; 70486; 72125; 76377; 80053; 80305; 80307; 82607; 84207; 85025; 85610; 86140; 86850; 86900; 86901; 96361; 96374; 99284; 99285; A9270; J3411; J7030

== ENCOUNTER 2025-06-05 16:48 | Emergency (ER) | payer MEDICARE, BC ==
[2025-06-05 17:11] VITALS: BP 101/69; PULSE 104
[2025-06-05 18:32] LABS: A/G RATIO 1.2 (1.2-2.2); ALANINE AMINOTRANSFERASE,ALT 40 U/L (12-78); ASPARTATE AMNIOTRANSFERASE,AST 72 U/L (15-37); BILIRUBIN TOTAL 2.6 mg/dL (0.2-1.0); BLOOD UREA NITROGEN,BUN 9 mg/dL (7-18); CARBON DIOXIDE,CO2 32 mmol/L (21-32); CHLORIDE,CL 83 mmol/L (100-108); CREATININE 0.9 mg/dL (0.8-1.3); EST CRCL DRUG DOSING (CG) 76.50 mL/min; ESTIMATED GFR 95 mL/min (>60); GLUCOSE RANDOM 116 mg/dL (74-106); POTASSIUM,K 3.3 mmol/L (3.6-5.2); PROTEIN TOTAL,TP 5.6 g/dL (6.4-8.2); SODIUM,NA 122 mmol/L (140-148)
== END 2025-06-05 20:37 | disposition home or self-care (01) ==
LOC: JP.ED 16:48
DX: S80.212A Abrasion, left knee, initial encounter (principal); S80.211A Abrasion, right knee, initial encounter; E66.9 Obesity, unspecified; E87.1 Hypo-osmolality and hyponatremia; F10.10 Alcohol abuse, uncomplicated; I10 Essential (primary) hypertension; Z79.899 Other long term (current) drug therapy; X58.XXXA Exposure to other specified factors, initial encounter
CPT/HCPCS: 36415; 73030; 73070; 80053; 80307; 96360; 99285; J7030

== ENCOUNTER 2025-08-04 14:00 | Inpatient (IN) | payer MEDICARE, BC ==
[2025-08-04] MEDS: Prochlorperazine 10 MG/2 ML SDV IVPUSH ONE (15:13)
[2025-08-04 15:16] LABS: BASOPHILS ABSOLUTE AUTO 0.06 K/uL (0.00-0.10); BASOPHILS PERCENT AUTO 0.5 % (0.1-1.3); EOSINOPHILS PERCENT AUTO 0.1 % (0.0-5.4); IMMATURE GRAN ABSOLUTE AUTO 0.11 K/uL (0.00-0.23); IMMATURE GRAN PERCENT AUTO 0.9 % (0.0-0.7); LYMPHOCYTES ABSOLUTE AUTO 0.37 K/uL (0.8-3.3); LYMPHOCYTES PERCENT AUTO 3.0 % (11.4-47.7); MONOCYTES ABSOLUTE AUTO 1.91 K/uL (0.20-0.90); MONOCYTES PERCENT AUTO 15.6 % (3.3-12.6); NEUTROPHILS ABSOLUTE AUTO 9.82 K/uL (1.0-7.6); NEUTROPHILS PERCENT AUTO 79.9 % (40.0-78.1); PLATELET COUNT,PLT 203 K/uL (130-375); RED BLOOD CELL COUNT 5.14 M/uL (4.14-5.76); WHITE BLOOD CELL COUNT,WBC 12.3 K/uL (3.2-11.0)
[2025-08-04 15:17] LABS: EOSINOPHILS ABSOLUTE AUTO 0.01 K/uL (0.00-0.40)
[2025-08-04 15:38] LABS: A/G RATIO 1.1 (1.2-2.2); ALANINE AMINOTRANSFERASE,ALT 19 U/L (12-78); ASPARTATE AMNIOTRANSFERASE,AST 23 U/L (15-37); BILIRUBIN TOTAL 1.7 mg/dL (0.2-1.0); BLOOD UREA NITROGEN,BUN 65 mg/dL (7-18); CARBON DIOXIDE,CO2 28 mmol/L (21-32); CHLORIDE,CL 77 mmol/L (100-108); CREATININE 2.4 mg/dL (0.8-1.3); EST CRCL DRUG DOSING (CG) 29.69 mL/min; ESTIMATED GFR 29 mL/min (>60); GLUCOSE RANDOM 111 mg/dL (74-106); POTASSIUM,K 3.4 mmol/L (3.6-5.2); PROTEIN TOTAL,TP 7.6 g/dL (6.4-8.2)
[2025-08-04 15:39] LABS: SODIUM,NA 119 mmol/L (140-148)
[2025-08-04 17:26] LABS: INR 6.5
[2025-08-04] MEDS ORDERED: Ondansetron 4 MG Tab.DIS PO PRN (17:46)
[2025-08-04] MEDS: MVI, Adult with Vitamin K 10 ML, Thiamine 100 MG, Folic Acid 1 MG, Magnesium Sulf 1 GM/... IV SCH (18:19)
[2025-08-04] MEDS: Ondansetron 4 MG/2 ML SDV IV PRN (20:36)
[2025-08-04] MEDS: LORazepam 2 MG/ML SDV IVPUSH PRN (22:19)
[2025-08-04 23:20] LABS: APPEARANCE,URINE CLEAR (CLEAR); GLUCOSE,URINE NEGATIVE (NEGATIVE); OCCULT BLOOD,URINE NEGATIVE (NEGATIVE)
[2025-08-04 23:30] LABS: SQUAMOUS EPITHELIAL CELLS,UR RARE /HPF; UROTHELIAL CELLS,URINE NOT SEEN /HPF
[2025-08-04 23:31] LABS: AMPHETAMINES SCREEN, URINE NEGATIVE (NEGATIVE); METHADONE SCREEN, URINE NEGATIVE (NEGATIVE); METHAMPHETAMINES SCREEN, URINE NEGATIVE (NEGATIVE); OXYCODONE SCREEN,URINE NEGATIVE (NEGATIVE); PROPOXYPHENE SCREEN,URINE NEGATIVE (NEGATIVE); THC SCREEN,URINE 50 NG/ML NEGATIVE (NEGATIVE)
[2025-08-05] MEDS: Phenol/Sodium Phenolate Spray 180 ML Bottle MUCMEM PRN (01:05)
[2025-08-05] MEDS: Metoprolol Tartrate 5 MG/5 ML SDV IVPUSH ONE (03:44)
[2025-08-05 06:06] LABS: PLATELET COUNT,PLT 191.0 K/uL (130-375); RED BLOOD CELL COUNT 5.08 M/uL (4.14-5.76); WHITE BLOOD CELL COUNT,WBC 9.2 K/uL (3.2-11.0)
[2025-08-05 06:28] LABS: A/G RATIO 1.1 (1.2-2.2); ALANINE AMINOTRANSFERASE,ALT 18 U/L (12-78); ASPARTATE AMNIOTRANSFERASE,AST 20 U/L (15-37); BILIRUBIN TOTAL 1.9 mg/dL (0.2-1.0); BLOOD UREA NITROGEN,BUN 53 mg/dL (7-18); CARBON DIOXIDE,CO2 28 mmol/L (21-32); CHLORIDE,CL 81 mmol/L (100-108); CREATININE 1.5 mg/dL (0.8-1.3); EST CRCL DRUG DOSING (CG) 46.70 mL/min; ESTIMATED GFR 51 mL/min (>60); GLUCOSE RANDOM 105 mg/dL (74-106); PROTEIN TOTAL,TP 6.8 g/dL (6.4-8.2); SODIUM,NA 122 mmol/L (140-148)
[2025-08-05 07:08] LABS: POTASSIUM,K 2.7 mmol/L (3.6-5.2)
[2025-08-05 08:00] LABS: INR 2.0
[2025-08-05] MEDS: Nystatin Crm 15 GM Tube TOP SCH (09:00)
[2025-08-05] MEDS: Benzocaine/Cetylpyridinium/Menthol Lozenge MUCMEM PRN (10:47)
[2025-08-06 05:50] LABS: PLATELET COUNT,PLT 165.0 K/uL (130-375); RED BLOOD CELL COUNT 4.59 M/uL (4.14-5.76); WHITE BLOOD CELL COUNT,WBC 7.5 K/uL (3.2-11.0)
[2025-08-06 06:08] LABS: INR 1.1
[2025-08-06 06:10] LABS: BLOOD UREA NITROGEN,BUN 33.0 mg/dL (7-18); CARBON DIOXIDE,CO2 27.0 mmol/L (21-32); CHLORIDE,CL 90.0 mmol/L (100-108); CREATININE 1.1 mg/dL (0.8-1.3); EST CRCL DRUG DOSING (CG) 63.68 mL/min; ESTIMATED GFR 75.0 mL/min (>60); GLUCOSE RANDOM 95.0 mg/dL (74-106); POTASSIUM,K 3.2 mmol/L (3.6-5.2); SODIUM,NA 127.0 mmol/L (140-148)
[2025-08-07 06:05] LABS: PLATELET COUNT,PLT 243.0 K/uL (130-375); RED BLOOD CELL COUNT 4.8 M/uL (4.14-5.76); WHITE BLOOD CELL COUNT,WBC 8.8 K/uL (3.2-11.0)
[2025-08-07 06:35] LABS: A/G RATIO 0.9 (1.2-2.2); ALANINE AMINOTRANSFERASE,ALT 16 U/L (12-78); ASPARTATE AMNIOTRANSFERASE,AST 17 U/L (15-37); BILIRUBIN TOTAL 1.0 mg/dL (0.2-1.0); BLOOD UREA NITROGEN,BUN 22 mg/dL (7-18); CARBON DIOXIDE,CO2 26 mmol/L (21-32); CHLORIDE,CL 92 mmol/L (100-108); CREATININE 0.9 mg/dL (0.8-1.3); EST CRCL DRUG DOSING (CG) 77.84 mL/min; ESTIMATED GFR 95 mL/min (>60); GLUCOSE RANDOM 91 mg/dL (74-106); POTASSIUM,K 3.4 mmol/L (3.6-5.2); PROTEIN TOTAL,TP 6.9 g/dL (6.4-8.2); SODIUM,NA 131 mmol/L (140-148)
[2025-08-07] MEDS: Diatrizoate Meglumine/Diatrizoate Sodium 37% 120 ML Bottle PO SCH (22:30)
[2025-08-08 05:57] LABS: PLATELET COUNT,PLT 254.0 K/uL (130-375); RED BLOOD CELL COUNT 4.64 M/uL (4.14-5.76); WHITE BLOOD CELL COUNT,WBC 14.0 K/uL (3.2-11.0)
[2025-08-08 06:13] LABS: BLOOD UREA NITROGEN,BUN 16.0 mg/dL (7-18); CARBON DIOXIDE,CO2 24.0 mmol/L (21-32); CHLORIDE,CL 98.0 mmol/L (100-108); CREATININE 1.0 mg/dL (0.8-1.3); EST CRCL DRUG DOSING (CG) 70.05 mL/min; ESTIMATED GFR 84.0 mL/min (>60); GLUCOSE RANDOM 99.0 mg/dL (74-106); POTASSIUM,K 3.9 mmol/L (3.6-5.2); SODIUM,NA 135.0 mmol/L (140-148)
[2025-08-08] MEDS ORDERED: Propofol 200 MG/20 ML SDV ONE (13:28)
[2025-08-08] MEDS ORDERED: Dexamethasone 4 MG/ML SDV ONE (13:28)
[2025-08-08] MEDS ORDERED: Succinylcholine 200 MG/10 ML MDV ONE (13:28)
[2025-08-08] MEDS ORDERED: fentaNYL 250 MCG/5 ML SDV ONE (13:28)
[2025-08-08] MEDS ORDERED: Glycopyrrolate 0.2 MG/ML 5 ML MDV ONE (13:28)
[2025-08-08] MEDS ORDERED: Ondansetron 4 MG/2 ML SDV ONE (13:28)
[2025-08-08] MEDS: Piperacillin/Tazobactam/Dext 4.5 GM in Premix Bag 1 BAG IV ONE (14:52)
[2025-08-08] MEDS ORDERED: Phenylephrine 1% 10 MG/ML SDV ONE (14:59)
[2025-08-08] MEDS ORDERED: Lactated Ringers 1,000 ML ONE ×2 (15:03→15:36)
[2025-08-08] MEDS: Lactated Ringers 1,000 ML IV SCH ×2 (16:50→23:01)
[2025-08-08] MEDS: Metoprolol Tartrate 5 MG/5 ML SDV IVPUSH PRN (18:25)
[2025-08-08] MEDS: Piperacillin/Tazobactam/Dext 4.5 GM in Premix Bag 1 BAG IV SCH (18:34)
[2025-08-08] MEDS: Metoprolol Tartrate 5 MG/5 ML SDV ONE (18:35)
[2025-08-08] MEDS: Esmolol HCL in Sterile Water 2,500 MG/250 ML BAG IV SCH (20:43)
[2025-08-08 20:47] LABS: PLATELET COUNT,PLT 273.0 K/uL (130-375); RED BLOOD CELL COUNT 5.06 M/uL (4.14-5.76); WHITE BLOOD CELL COUNT,WBC 22.8 K/uL (3.2-11.0)
[2025-08-08] MEDS: Norepinephrine Bit/D5W Premix 4 MG/250 ML BAG IV SCH (21:53)
[2025-08-09] MEDS: Heparin Sodium 5,000 Units/ML Vial SUBCUT SCH (05:25)
[2025-08-09 06:46] LABS: PLATELET COUNT,PLT 248.0 K/uL (130-375); RED BLOOD CELL COUNT 4.58 M/uL (4.14-5.76)
[2025-08-09 06:49] LABS: WHITE BLOOD CELL COUNT,WBC 43.4 K/uL (3.2-11.0)
[2025-08-09 07:00] LABS: BLOOD UREA NITROGEN,BUN 23.0 mg/dL (7-18); CARBON DIOXIDE,CO2 23.0 mmol/L (21-32); CHLORIDE,CL 103.0 mmol/L (100-108); CREATININE 1.9 mg/dL (0.8-1.3); EST CRCL DRUG DOSING (CG) 36.87 mL/min; ESTIMATED GFR 39.0 mL/min (>60); GLUCOSE RANDOM 181.0 mg/dL (74-106); INR 1.5; POTASSIUM,K 3.9 mmol/L (3.6-5.2); SODIUM,NA 136.0 mmol/L (140-148)
[2025-08-09] MEDS: Levofloxacin/Dextrose 5%-Water 750 MG in Premix Bag 1 BAG IV SCH (08:15)
[2025-08-09] MEDS: Lactobacillus Rhamnosus GG (Probiotic) Cap PO SCH (08:39)
[2025-08-09] MEDS: Piperacillin/Tazobactam/Dext 4.5 GM in Premix Bag 1 BAG IV SCH (12:31)
[2025-08-09] MEDS: Hydrocortisone Sodium Succinate 100 MG/2 ML SDV IVPUSH ONE (13:06)
[2025-08-09 17:28] LABS: BLOOD UREA NITROGEN,BUN 20.0 mg/dL (7-18); CARBON DIOXIDE,CO2 21.0 mmol/L (21-32); CHLORIDE,CL 105.0 mmol/L (100-108); CREATININE 1.3 mg/dL (0.8-1.3); EST CRCL DRUG DOSING (CG) 53.89 mL/min; ESTIMATED GFR 61.0 mL/min (>60); GLUCOSE RANDOM 159.0 mg/dL (74-106); POTASSIUM,K 3.7 mmol/L (3.6-5.2); SODIUM,NA 136.0 mmol/L (140-148)
[2025-08-10 05:56] LABS: PLATELET COUNT,PLT 128.0 K/uL (130-375); RED BLOOD CELL COUNT 3.77 M/uL (4.14-5.76)
[2025-08-10 06:02] LABS: WHITE BLOOD CELL COUNT,WBC 30.6 K/uL (3.2-11.0)
[2025-08-10 06:24] LABS: A/G RATIO 0.5 (1.2-2.2); ALANINE AMINOTRANSFERASE,ALT 15 U/L (12-78); ASPARTATE AMNIOTRANSFERASE,AST 28 U/L (15-37); BILIRUBIN TOTAL 1.1 mg/dL (0.2-1.0); BLOOD UREA NITROGEN,BUN 16 mg/dL (7-18); CARBON DIOXIDE,CO2 23 mmol/L (21-32); CHLORIDE,CL 106 mmol/L (100-108); CREATININE 0.9 mg/dL (0.8-1.3); EST CRCL DRUG DOSING (CG) 77.84 mL/min; ESTIMATED GFR 95 mL/min (>60); GLUCOSE RANDOM 140 mg/dL (74-106); POTASSIUM,K 3.2 mmol/L (3.6-5.2); PROTEIN TOTAL,TP 4.6 g/dL (6.4-8.2); SODIUM,NA 139 mmol/L (140-148)
[2025-08-10] MEDS: Magnesium Sulfate 2 GM/50 mL 2 GM in Premix Bag 1 BAG IV SCH (09:35)
[2025-08-10] MEDS: Levofloxacin/Dextrose 5%-Water 750 MG in Premix Bag 1 BAG IV SCH (09:46)
[2025-08-10 17:12] LABS: BLOOD UREA NITROGEN,BUN 13.0 mg/dL (7-18); CARBON DIOXIDE,CO2 22.0 mmol/L (21-32); CHLORIDE,CL 103.0 mmol/L (100-108); CREATININE 0.8 mg/dL (0.8-1.3); EST CRCL DRUG DOSING (CG) 87.57 mL/min; ESTIMATED GFR 98.0 mL/min (>60); GLUCOSE RANDOM 161.0 mg/dL (74-106); POTASSIUM,K 3.2 mmol/L (3.6-5.2); SODIUM,NA 135.0 mmol/L (140-148)
[2025-08-10] MEDS: Potassium Chloride 20 MEQ in Premix Bag 1 BAG IV SCH (19:50)
[2025-08-10] MEDS: Potassium Chloride 20 MEQ Tab.ER PO ONE (22:37)
[2025-08-11 05:49] LABS: PLATELET COUNT,PLT 100.0 K/uL (130-375); RED BLOOD CELL COUNT 3.68 M/uL (4.14-5.76); WHITE BLOOD CELL COUNT,WBC 24.5 K/uL (3.2-11.0)
[2025-08-11 06:13] LABS: BLOOD UREA NITROGEN,BUN 11.0 mg/dL (7-18); CARBON DIOXIDE,CO2 23.0 mmol/L (21-32); CHLORIDE,CL 108.0 mmol/L (100-108); CREATININE 0.7 mg/dL (0.8-1.3); EST CRCL DRUG DOSING (CG) 100.07 mL/min; ESTIMATED GFR 102.0 mL/min (>60); GLUCOSE RANDOM 96.0 mg/dL (74-106); POTASSIUM,K 3.2 mmol/L (3.6-5.2); SODIUM,NA 139.0 mmol/L (140-148)
[2025-08-11] MEDS: Magnesium Sulfate 2 GM/50 mL 2 GM in Premix Bag 1 BAG IV SCH (13:02)
[2025-08-11] MEDS: AA 5%/Calcium/D15W/Lytes 1,000 ML IV SCH (15:36)
[2025-08-12 05:43] LABS: PLATELET COUNT,PLT 91.0 K/uL (130-375); RED BLOOD CELL COUNT 3.56 M/uL (4.14-5.76); WHITE BLOOD CELL COUNT,WBC 12.1 K/uL (3.2-11.0)
[2025-08-12 06:05] LABS: BLOOD UREA NITROGEN,BUN 12.0 mg/dL (7-18); CARBON DIOXIDE,CO2 25.0 mmol/L (21-32); CHLORIDE,CL 107.0 mmol/L (100-108); CREATININE 0.7 mg/dL (0.8-1.3); EST CRCL DRUG DOSING (CG) 100.07 mL/min; ESTIMATED GFR 102.0 mL/min (>60); GLUCOSE RANDOM 128.0 mg/dL (74-106); POTASSIUM,K 3.2 mmol/L (3.6-5.2); SODIUM,NA 139.0 mmol/L (140-148); VANCOMYCIN RANDOM 5.0 ug/mL (0.0-50.0)
[2025-08-12] MEDS: Magnesium Sulfate 2 GM/50 mL 2 GM in Premix Bag 1 BAG IV SCH (08:06)
[2025-08-12] MEDS: Furosemide 40 MG/4 ML VIAL IVPUSH ONE (08:06)
[2025-08-12] MEDS: Metoprolol Tartrate 5 MG/5 ML SDV IVPUSH SCH (11:01)
[2025-08-12] MEDS: AA 5%/Calcium/D15W/Lytes 2,000 ML with MVI, Adult with Vitamin K 10 ML, Zinc/Copper/Man... IV SCH (13:48)
[2025-08-12] MEDS: Furosemide 20 MG/2 ML VIAL IVPUSH ONE (21:07)
[2025-08-13 05:55] LABS: PLATELET COUNT,PLT 99.0 K/uL (130-375); RED BLOOD CELL COUNT 3.83 M/uL (4.14-5.76); WHITE BLOOD CELL COUNT,WBC 13.5 K/uL (3.2-11.0)
[2025-08-13 06:18] LABS: BLOOD UREA NITROGEN,BUN 15.0 mg/dL (7-18); CARBON DIOXIDE,CO2 27.0 mmol/L (21-32); CHLORIDE,CL 103.0 mmol/L (100-108); CREATININE 0.7 mg/dL (0.8-1.3); EST CRCL DRUG DOSING (CG) 100.07 mL/min; ESTIMATED GFR 102.0 mL/min (>60); GLUCOSE RANDOM 125.0 mg/dL (74-106); POTASSIUM,K 3.3 mmol/L (3.6-5.2); SODIUM,NA 138.0 mmol/L (140-148)
[2025-08-13] MEDS: Furosemide 40 MG/4 ML VIAL IVPUSH ONE (08:50)
[2025-08-13] MEDS: Magnesium Sulfate 2 GM/50 mL 2 GM in Premix Bag 1 BAG IV SCH (09:05)
[2025-08-13] MEDS: Potassium Chloride 20 MEQ Tab.ER PO ONE (17:03)
[2025-08-14 05:47] LABS: PLATELET COUNT,PLT 163.0 K/uL (130-375); RED BLOOD CELL COUNT 3.81 M/uL (4.14-5.76); WHITE BLOOD CELL COUNT,WBC 15.0 K/uL (3.2-11.0)
[2025-08-14] MEDS: AA 5%/Calcium/D15W/Lytes 1,000 ML IV SCH (06:00)
[2025-08-14 06:02] LABS: BLOOD UREA NITROGEN,BUN 16.0 mg/dL (7-18); CARBON DIOXIDE,CO2 27.0 mmol/L (21-32); CHLORIDE,CL 100.0 mmol/L (100-108); CREATININE 0.6 mg/dL (0.8-1.3); EST CRCL DRUG DOSING (CG) 116.75 mL/min; ESTIMATED GFR 107.0 mL/min (>60); GLUCOSE RANDOM 132.0 mg/dL (74-106); INR 1.1; POTASSIUM,K 3.7 mmol/L (3.6-5.2); SODIUM,NA 134.0 mmol/L (140-148)
[2025-08-14] MEDS: Sennosides/Docusate Sodium 50-8.6 MG Tab PO PRN (07:54)
[2025-08-14] MEDS: Potassium Chloride 20 MEQ Tab.ER PO ONE (10:09)
[2025-08-14] MEDS: Sodium Chloride 0.9% 10 ML Syringe FLUSH ONE (11:39)
[2025-08-14] MEDS: Iopamidol 612 MG/ML 100 ML Bottle IV SCH (11:39)
[2025-08-14] MEDS ORDERED: Central Total Parenteral Nutrition Bag SCH (11:45)
[2025-08-14] MEDS: Fluconazole/Normal Saline 200 MG in Premix Bag 1 BAG IV SCH (11:48)
[2025-08-14] MEDS: AA 5%/Calcium/D15W/Lytes 2,000 ML with MVI, Adult with Vitamin K 10 ML, Zinc/Copper/Man... IV SCH (16:31)
[2025-08-15 05:57] LABS: PLATELET COUNT,PLT 256.0 K/uL (130-375); RED BLOOD CELL COUNT 3.64 M/uL (4.14-5.76); WHITE BLOOD CELL COUNT,WBC 14.8 K/uL (3.2-11.0)
[2025-08-15 06:10] LABS: A/G RATIO 0.4 (1.2-2.2); ALANINE AMINOTRANSFERASE,ALT 14 U/L (12-78); ASPARTATE AMNIOTRANSFERASE,AST 17 U/L (15-37); BILIRUBIN TOTAL 0.6 mg/dL (0.2-1.0); BLOOD UREA NITROGEN,BUN 15 mg/dL (7-18); CARBON DIOXIDE,CO2 28 mmol/L (21-32); CHLORIDE,CL 102 mmol/L (100-108); CREATININE 0.6 mg/dL (0.8-1.3); EST CRCL DRUG DOSING (CG) 116.75 mL/min; ESTIMATED GFR 107 mL/min (>60); GLUCOSE RANDOM 124 mg/dL (74-106); POTASSIUM,K 4.2 mmol/L (3.6-5.2); PROTEIN TOTAL,TP 5.0 g/dL (6.4-8.2); SODIUM,NA 135 mmol/L (140-148)
[2025-08-15] MEDS: Nystatin Topical Powder 15 GM Bottle TOP SCH (08:15)
[2025-08-15] MEDS: Albumin Human 25 GM in Premix Bag 1 BAG IV ONE (09:42)
[2025-08-15] MEDS ORDERED: Central Total Parenteral Nutrition Bag SCH (11:30)
[2025-08-15] MEDS ORDERED: Glycopyrrolate 0.2 MG/ML 5 ML MDV ONE (14:33)
[2025-08-15] MEDS ORDERED: Dexamethasone 4 MG/ML SDV ONE (14:33)
[2025-08-15] MEDS ORDERED: Succinylcholine 200 MG/10 ML MDV ONE (14:33)
[2025-08-15] MEDS ORDERED: Propofol 200 MG/20 ML SDV ONE (14:33)
[2025-08-15] MEDS ORDERED: Ondansetron 4 MG/2 ML SDV ONE (14:33)
[2025-08-15] MEDS ORDERED: fentaNYL 250 MCG/5 ML SDV ONE (14:34)
[2025-08-15] MEDS ORDERED: Esmolol HCL in Sterile Water 2,500 MG/250 ML BAG IV SCH (15:15)
[2025-08-15] MEDS: Simethicone 125 MG Tab.Chew PO SCH (16:38)
[2025-08-16 06:02] LABS: PLATELET COUNT,PLT 391.0 K/uL (130-375); RED BLOOD CELL COUNT 3.78 M/uL (4.14-5.76); WHITE BLOOD CELL COUNT,WBC 21.0 K/uL (3.2-11.0)
[2025-08-16 06:14] LABS: BLOOD UREA NITROGEN,BUN 15.0 mg/dL (7-18); CARBON DIOXIDE,CO2 27.0 mmol/L (21-32); CHLORIDE,CL 101.0 mmol/L (100-108); CREATININE 0.6 mg/dL (0.8-1.3); EST CRCL DRUG DOSING (CG) 116.75 mL/min; ESTIMATED GFR 107.0 mL/min (>60); GLUCOSE RANDOM 156.0 mg/dL (74-106); POTASSIUM,K 5.2 mmol/L (3.6-5.2); SODIUM,NA 134.0 mmol/L (140-148)
[2025-08-16] MEDS: 1: AA 5%/Calcium/D15W/Lytes 1,000 ML with MVI, Adult with Vitamin K 10 ML, Zinc/Copper/M IV SCH ×2 (09:18→19:20)
[2025-08-16] MEDS ORDERED: Central Total Parenteral Nutrition Bag SCH (10:15)
[2025-08-17 06:03] LABS: PLATELET COUNT,PLT 453.0 K/uL (130-375); RED BLOOD CELL COUNT 3.64 M/uL (4.14-5.76); WHITE BLOOD CELL COUNT,WBC 16.7 K/uL (3.2-11.0)
[2025-08-17 06:22] LABS: A/G RATIO 0.4 (1.2-2.2); ALANINE AMINOTRANSFERASE,ALT 14 U/L (12-78); ASPARTATE AMNIOTRANSFERASE,AST 19 U/L (15-37); BILIRUBIN TOTAL 0.5 mg/dL (0.2-1.0); BLOOD UREA NITROGEN,BUN 19 mg/dL (7-18); CARBON DIOXIDE,CO2 28 mmol/L (21-32); CHLORIDE,CL 100 mmol/L (100-108); CREATININE 0.7 mg/dL (0.8-1.3); EST CRCL DRUG DOSING (CG) 100.07 mL/min; ESTIMATED GFR 102 mL/min (>60); GLUCOSE RANDOM 109 mg/dL (74-106); POTASSIUM,K 5.0 mmol/L (3.6-5.2); PROTEIN TOTAL,TP 5.5 g/dL (6.4-8.2); SODIUM,NA 133 mmol/L (140-148); VANCOMYCIN RANDOM 15.8 ug/mL (0.0-50.0)
[2025-08-17] MEDS: Magnesium Hydroxide 400 MG/5 ML Susp 30 ML Cup PO PRN (08:50)
[2025-08-17] MEDS: Albumin Human 25 GM in Premix Bag 1 BAG IV ONE (09:36)
[2025-08-17] MEDS ORDERED: Central Total Parenteral Nutrition Bag SCH (12:15)
[2025-08-17] MEDS: guaiFENesin/Dextromethorphan 100-10 MG/5 ML Soln 10 ML Cup PO SCH (14:00)
[2025-08-18 05:48] LABS: PLATELET COUNT,PLT 479.0 K/uL (130-375); RED BLOOD CELL COUNT 3.69 M/uL (4.14-5.76); WHITE BLOOD CELL COUNT,WBC 16.4 K/uL (3.2-11.0)
[2025-08-18 05:57] LABS: BLOOD UREA NITROGEN,BUN 17.0 mg/dL (7-18); CARBON DIOXIDE,CO2 28.0 mmol/L (21-32); CHLORIDE,CL 95.0 mmol/L (100-108); CREATININE 0.7 mg/dL (0.8-1.3); EST CRCL DRUG DOSING (CG) 100.07 mL/min; ESTIMATED GFR 102.0 mL/min (>60); GLUCOSE RANDOM 118.0 mg/dL (74-106); POTASSIUM,K 4.0 mmol/L (3.6-5.2); SODIUM,NA 132.0 mmol/L (140-148)
[2025-08-18] MEDS ORDERED: Central Total Parenteral Nutrition Bag SCH (11:00)
[2025-08-18] MEDS: metroNIDAZOLE/Normal Saline 500 MG in Premix Bag 1 BAG IV SCH (14:02)
[2025-08-19 05:33] LABS: PLATELET COUNT,PLT 466.0 K/uL (130-375); RED BLOOD CELL COUNT 3.55 M/uL (4.14-5.76); WHITE BLOOD CELL COUNT,WBC 14.2 K/uL (3.2-11.0)
[2025-08-19 05:58] LABS: A/G RATIO 0.4 (1.2-2.2); ALANINE AMINOTRANSFERASE,ALT 16 U/L (12-78); ASPARTATE AMNIOTRANSFERASE,AST 16 U/L (15-37); BILIRUBIN TOTAL 0.9 mg/dL (0.2-1.0); BLOOD UREA NITROGEN,BUN 16 mg/dL (7-18); CARBON DIOXIDE,CO2 30 mmol/L (21-32); CHLORIDE,CL 97 mmol/L (100-108); CREATININE 0.7 mg/dL (0.8-1.3); EST CRCL DRUG DOSING (CG) 100.07 mL/min; ESTIMATED GFR 102 mL/min (>60); GLUCOSE RANDOM 129 mg/dL (74-106); POTASSIUM,K 4.0 mmol/L (3.6-5.2); PROTEIN TOTAL,TP 5.7 g/dL (6.4-8.2); SODIUM,NA 132 mmol/L (140-148)
[2025-08-19] MEDS ORDERED: Central Total Parenteral Nutrition Bag SCH (09:30)
[2025-08-19] MEDS: Albumin Human 25 GM in Premix Bag 1 BAG IV ONE (10:29)
[2025-08-20 05:38] LABS: PLATELET COUNT,PLT 484.0 K/uL (130-375); RED BLOOD CELL COUNT 3.53 M/uL (4.14-5.76); WHITE BLOOD CELL COUNT,WBC 14.2 K/uL (3.2-11.0)
[2025-08-20 05:53] LABS: BLOOD UREA NITROGEN,BUN 15.0 mg/dL (7-18); CARBON DIOXIDE,CO2 29.0 mmol/L (21-32); CHLORIDE,CL 98.0 mmol/L (100-108); CREATININE 0.7 mg/dL (0.8-1.3); EST CRCL DRUG DOSING (CG) 100.07 mL/min; ESTIMATED GFR 102.0 mL/min (>60); GLUCOSE RANDOM 134.0 mg/dL (74-106); POTASSIUM,K 4.4 mmol/L (3.6-5.2); SODIUM,NA 133.0 mmol/L (140-148)
[2025-08-20] MEDS ORDERED: Central Total Parenteral Nutrition Bag SCH (10:30)
[2025-08-20] MEDS: 1: AA 5%/Calcium/D15W/Lytes 1,000 ML with MVI, Adult with Vitamin K 10 ML, Zinc/Copper/M IV SCH (16:10)
[2025-08-21 05:44] LABS: PLATELET COUNT,PLT 503.0 K/uL (130-375); RED BLOOD CELL COUNT 3.38 M/uL (4.14-5.76); WHITE BLOOD CELL COUNT,WBC 12.2 K/uL (3.2-11.0)
[2025-08-21 06:16] LABS: A/G RATIO 0.5 (1.2-2.2); ALANINE AMINOTRANSFERASE,ALT 15 U/L (12-78); ASPARTATE AMNIOTRANSFERASE,AST 14 U/L (15-37); BILIRUBIN TOTAL 0.5 mg/dL (0.2-1.0); BLOOD UREA NITROGEN,BUN 16 mg/dL (7-18); CARBON DIOXIDE,CO2 29 mmol/L (21-32); CHLORIDE,CL 98 mmol/L (100-108); CREATININE 0.7 mg/dL (0.8-1.3); EST CRCL DRUG DOSING (CG) 100.07 mL/min; ESTIMATED GFR 102 mL/min (>60); GLUCOSE RANDOM 111 mg/dL (74-106); POTASSIUM,K 4.3 mmol/L (3.6-5.2); PROTEIN TOTAL,TP 5.9 g/dL (6.4-8.2); SODIUM,NA 132 mmol/L (140-148)
[2025-08-21] MEDS ORDERED: Central Total Parenteral Nutrition Bag SCH (11:30)
[2025-08-22 05:39] LABS: PLATELET COUNT,PLT 488.0 K/uL (130-375); RED BLOOD CELL COUNT 3.48 M/uL (4.14-5.76); WHITE BLOOD CELL COUNT,WBC 12.4 K/uL (3.2-11.0)
[2025-08-22 06:01] LABS: BLOOD UREA NITROGEN,BUN 15.0 mg/dL (7-18); CARBON DIOXIDE,CO2 28.0 mmol/L (21-32); CHLORIDE,CL 98.0 mmol/L (100-108); CREATININE 0.7 mg/dL (0.8-1.3); EST CRCL DRUG DOSING (CG) 100.07 mL/min; ESTIMATED GFR 102.0 mL/min (>60); GLUCOSE RANDOM 107.0 mg/dL (74-106); POTASSIUM,K 4.2 mmol/L (3.6-5.2); SODIUM,NA 132.0 mmol/L (140-148)
[2025-08-22] MEDS ORDERED: Central Total Parenteral Nutrition Bag SCH (11:30)
[2025-08-23 06:30] LABS: PLATELET COUNT,PLT 466.0 K/uL (130-375); RED BLOOD CELL COUNT 3.24 M/uL (4.14-5.76); WHITE BLOOD CELL COUNT,WBC 11.3 K/uL (3.2-11.0)
[2025-08-23 06:53] LABS: BLOOD UREA NITROGEN,BUN 16.0 mg/dL (7-18); CARBON DIOXIDE,CO2 27.0 mmol/L (21-32); CHLORIDE,CL 98.0 mmol/L (100-108); CREATININE 0.6 mg/dL (0.8-1.3); EST CRCL DRUG DOSING (CG) 116.75 mL/min; ESTIMATED GFR 107.0 mL/min (>60); GLUCOSE RANDOM 117.0 mg/dL (74-106); POTASSIUM,K 3.8 mmol/L (3.6-5.2); SODIUM,NA 131.0 mmol/L (140-148)
[2025-08-23] MEDS ORDERED: Central Total Parenteral Nutrition Bag SCH (11:45)
[2025-08-24 06:08] LABS: PLATELET COUNT,PLT 452.0 K/uL (130-375); RED BLOOD CELL COUNT 3.19 M/uL (4.14-5.76); WHITE BLOOD CELL COUNT,WBC 11.3 K/uL (3.2-11.0)
[2025-08-24 06:31] LABS: BLOOD UREA NITROGEN,BUN 16.0 mg/dL (7-18); CARBON DIOXIDE,CO2 26.0 mmol/L (21-32); CHLORIDE,CL 97.0 mmol/L (100-108); CREATINE KINASE,CK 8.0 U/L (39-308); CREATININE 0.6 mg/dL (0.8-1.3); EST CRCL DRUG DOSING (CG) 116.75 mL/min; ESTIMATED GFR 107.0 mL/min (>60); GLUCOSE RANDOM 113.0 mg/dL (74-106); POTASSIUM,K 3.7 mmol/L (3.6-5.2); SODIUM,NA 129.0 mmol/L (140-148)
[2025-08-24] MEDS ORDERED: Central Total Parenteral Nutrition Bag SCH (11:00)
[2025-08-25 06:14] LABS: PLATELET COUNT,PLT 402.0 K/uL (130-375); RED BLOOD CELL COUNT 3.18 M/uL (4.14-5.76); WHITE BLOOD CELL COUNT,WBC 10.8 K/uL (3.2-11.0)
[2025-08-25] MEDS: 1: AA 5%/Calcium/D15W/Lytes 1,000 ML with MVI, Adult with Vitamin K 10 ML, Zinc/Copper/M IV SCH (10:06)
[2025-08-26 06:20] LABS: PLATELET COUNT,PLT 422 K/uL (130-375); RED BLOOD CELL COUNT 3.14 M/uL (4.14-5.76); WHITE BLOOD CELL COUNT,WBC 10.0 K/uL (3.2-11.0)
[2025-08-26 06:33] LABS: BLOOD UREA NITROGEN,BUN 14.0 mg/dL (7-18); CARBON DIOXIDE,CO2 26.0 mmol/L (21-32); CHLORIDE,CL 99.0 mmol/L (100-108); CREATININE 0.7 mg/dL (0.8-1.3); EST CRCL DRUG DOSING (CG) 98.74 mL/min; ESTIMATED GFR 102.0 mL/min (>60); GLUCOSE RANDOM 121.0 mg/dL (74-106); POTASSIUM,K 3.9 mmol/L (3.6-5.2); SODIUM,NA 131.0 mmol/L (140-148)
[2025-08-26 06:52] LABS: EOSINOPHILS ABSOLUTE MAN 0.30 K/uL (0.00-0.40); EOSINOPHILS PERCENT MAN 3 % (2-4); LYMPHOCYTES ABSOLUTE MAN 0.90 K/uL (0.8-3.3); LYMPHOCYTES PERCENT MAN 9 % (24-44); MONOCYTES ABSOLUTE MAN 0.90 K/uL (0.20-0.90); MONOCYTES PERCENT MAN 9 % (2-6); NEUTROPHILS ABSOLUTE MAN 7.90 K/uL (1.0-7.6); SEG NEUTROPHILS PERCENT MAN 79 % (36-66)
[2025-08-26] MEDS: 1: AA 5%/Calcium/D15W/Lytes 1,000 ML with MVI, Adult with Vitamin K 10 ML, Zinc/Copper/M IV SCH (19:56)
[2025-08-27] MEDS: Simethicone 125 MG Tab.Chew PO PRN (00:29)
[2025-08-27 06:03] LABS: INR 1.6
[2025-08-28 05:58] LABS: PLATELET COUNT,PLT 474 K/uL (130-375); RED BLOOD CELL COUNT 3.25 M/uL (4.14-5.76); WHITE BLOOD CELL COUNT,WBC 9.8 K/uL (3.2-11.0)
[2025-08-28 06:04] LABS: BLOOD UREA NITROGEN,BUN 17.0 mg/dL (7-18); CARBON DIOXIDE,CO2 26.0 mmol/L (21-32); CHLORIDE,CL 96.0 mmol/L (100-108); CREATININE 0.7 mg/dL (0.8-1.3); EST CRCL DRUG DOSING (CG) 98.74 mL/min; ESTIMATED GFR 102.0 mL/min (>60); GLUCOSE RANDOM 106.0 mg/dL (74-106); POTASSIUM,K 4.2 mmol/L (3.6-5.2); SODIUM,NA 129.0 mmol/L (140-148)
[2025-08-28 06:07] LABS: INR 1.6
[2025-08-28 07:27] LABS: BAND PERCENT MAN 5 % (5-11); EOSINOPHILS ABSOLUTE MAN 0.20 K/uL (0.00-0.40); EOSINOPHILS PERCENT MAN 2 % (2-4); LYMPHOCYTES ABSOLUTE MAN 1.47 K/uL (0.8-3.3); LYMPHOCYTES PERCENT MAN 15 % (24-44); MONOCYTES ABSOLUTE MAN 1.18 K/uL (0.20-0.90); MONOCYTES PERCENT MAN 12 % (2-6); NEUTROPHILS ABSOLUTE MAN 6.47 K/uL (1.0-7.6); SEG NEUTROPHILS PERCENT MAN 66 % (36-66)
[2025-08-28 07:28] LABS: BAND ABSOLUTE MAN 0.49 K/uL
[2025-08-28 11:11] VITALS: BP 120/74; PULSE 77
== END 2025-08-28 14:47 | disposition home or self-care (01) | DRG 329 ==
LOC: JP.ED 14:00 → JP.ICU 17:28 → JP.MS 08-13 10:41 → JP.ICU 08-15 15:55 → JP.MS 08-17 11:00
PROVIDERS: ADMIT Internal Medicine; ATTEND Internal Medicine
PROC: 0DT80ZZ Resection of Small Intestine, Open Approach (ICD-10-PCS; principal; 2025-08-04)
PROC: 0W9G0ZZ Drainage of Peritoneal Cavity, Open Approach (ICD-10-PCS; principal; 2025-08-04)
DX: K56.609 Unspecified intestinal obstruction, unspecified as to partial versus complete obstruction (principal); A41.51 Sepsis due to Escherichia coli [E. coli]; E43 Unspecified severe protein-calorie malnutrition; R65.21 Severe sepsis with septic shock; E87.1 Hypo-osmolality and hyponatremia; N17.9 Acute kidney failure, unspecified; T81.43XA Infection following a procedure, organ and space surgical site, initial encounter; K91.2 Postsurgical malabsorption, not elsewhere classified; K56.7 Ileus, unspecified; E83.42 Hypomagnesemia; E87.6 Hypokalemia; I48.0 Paroxysmal atrial fibrillation; F10.10 Alcohol abuse, uncomplicated; R41.0 Disorientation, unspecified; D72.829 Elevated white blood cell count, unspecified; I95.9 Hypotension, unspecified; H54.7 Unspecified visual loss; I10 Essential (primary) hypertension; G47.30 Sleep apnea, unspecified; M19.90 Unspecified osteoarthritis, unspecified site; E66.9 Obesity, unspecified; Z68.33 Body mass index [BMI] 33.0-33.9, adult; Z98.890 Other specified postprocedural states; Z87.891 Personal history of nicotine dependence; Z79.899 Other long term (current) drug therapy
CPT/HCPCS: 36415; 49405; 71045; 71045-26; 74018; 74018-26; 74019; 74019-26; 74176; 74177; 74177-26; 77012; 77012-26; 80048; 80053; 80162; 80202; 80305-QW; 80307; 81001; 82140; 82550; 83605; 83690; 83735; 84132; 84134; 84478; 85025; 85027; 85610; 86140; 87040; 87070; 87077; 87186; 87205; 88307; 93010; 96361; 96374; 97110-GP; 97161-GP; 97162-GP; 97530-GP; 99223; 99232; 99233; 99239; 99285; 99285-25; A9270-GY; C1729; C1751; J0330; J0616; J0690; J0696; J0780; J1100; J1160; J1171; J1450; J1596; J1644; J1650; J1720; J1808; J1836; J1938; J1956; J2003; J2060; J2270; J2371; J2405; J2470; J2543; J2598; J2704; J2710; J2765; J2997; J3010; J3373; J3411; J3430; J3475; J3480; J3490; J7030; J7050; J7060; J7120; P9047; Q9963; Q9967